=== PATIENT | male | born 1935 | race Caucasian/White ===

== ENCOUNTER 2016-12-17 10:07 | Inpatient (IN) | payer MEDICARE ==
[2016-12-17] VITALS (14 sets, daily range): BP systolic 86–116; BP diastolic 54–78; PULSE 78–92; RESP 14–27; TEMP 97.7–102.7; O2SAT 92–99
[~2016-12-17] VITALS: Ht 162.6 cm; Wt 74.7 kg
[2016-12-17] MEDS ORDERED: SODIUM CHLOR 0.9% 1000 ML INJ 1,000 ML IV SCH (10:10)
[2016-12-17] MEDS ORDERED: ONDANSETRON HCL 4 MG/2 ML VIAL IV ONE (10:15)
[2016-12-17] MEDS ORDERED: SODIUM CHLORIDE 0.9% FLUSH 10 ML FLUSH IVF PRN (10:15)
[2016-12-17] MEDS ORDERED: ACETAMINOPHEN 650 MG SUPP RECTAL ONE (10:30)
--- NOTE | 2016-12-17 10:56 | RADRPT ---
EXAM DATE/TIME: 12/17/2016 10:34 [facility] COMPARISON: No previous studies available for comparison. INDICATIONS : Fever MEDICAL HISTORY : None. SURGICAL HISTORY : None. ENCOUNTER: Initial ACUITY: 1 day PAIN SCORE: Non-responsive. LOCATION: Bilateral chest FINDINGS: Portable AP view of the chest demonstrates cardiac silhouette size at the upper limits for normal. Sara ngs are underinflated. No effusion, consolidation, or pneumothorax is identified. Bones and soft tiss ues demonstrate no acute finding. There are degenerative changes of the thoracic spine. CONCLUSION: Underinflated examination without an acute finding identified. Cardiac silhouette size is at the uppe r limits for normal. Bunny Dangelo MD on December 17, 2016 at 10:53 Board Certified Radiologist. This report was verified electronically.
[2016-12-17 11:02] LABS: AUTOMATED NEUTROPHIL # 12.2 TH/MM3 (1.8-7.7); BASOPHIL % 0.1 % (0.0-2.0); HEMATOCRIT 35.9 % (39.0-51.0); HEMO FLAGS DIFF FINAL; LYMPH % 22.3 % (9.0-44.0); LYMPHOCYTE # 3.7 TH/MM3 (1.0-4.8); MEAN CORPUSCULAR HEMOGLOBIN 25.6 PG (27.0-34.0); MEAN CORPUSCULAR HGB CONC 32.4 % (32.0-36.0); MONO % 4.5 % (0.0-8.0); NEUT % 73.1 % (16.0-70.0); PLATELET COUNT 237 TH/MM3 (150-450); RED BLOOD COUNT 4.55 MIL/MM3 (4.50-5.90); RED CELL DISTRIBUTION WIDTH 15.7 % (11.6-17.2); WHITE BLOOD COUNT 16.7 TH/MM3 (4.0-11.0)
[2016-12-17 11:09] LABS: APTT (PATIENT) 21.5 SEC (24.3-30.1); INTERNATIONAL NORMALIZED RATIO 1.1 RATIO; PROTHROMBIN TIME - PATIENT 12.2 SEC (9.8-11.6)
--- NOTE | 2016-12-17 11:09 | PD ---
HPI Chief Complaint: Altered Mental Status Time Seen by Provider: 10:10 Travel History International Travel<30 days: No Contact w/Intl Traveler<30days: No Traveled to known affect area: No History of Present Illness HPI 81-year-old male presents by ambulance with fever and found down on the ground. The has dementia and it was unknown how long he had been down on the ground. He was covered in urine and feces. Patient also speaks only a small amount of Qatari and mainly speaks Czech. History is significantly limited [facility] Past Medical History Medical History: Unable to Obtain Past Surgical History Surgical History: Unable to Obtain Social History Tobacco Use: No (unable to obtain) Allergies-Medications (Allergen,Severity, Reaction): Coded Allergies: UNOBTAINABLE (Unverified , 12/17/16) Reported Meds & Prescriptions Reported Meds & Active Scripts Active Reported Milk of Magnesia Liq (Magnesium Hydroxide) 400 Mg/5 Ml Susp 45 Ml PO HS Hydrochlorothiazide 25 Mg Tab 25 Mg PO DAILY Review of Systems Except as stated in HPI: all other systems reviewed are Neg Physical Exam Exam Limitations: Poor Historian Narrative GENERAL: Covered in feces SKIN: Warm and dry. HEAD: Normocephalic EYES: No injection or drainage. Pupils equal ENT: No nasal drainage noted. NECK: Supple, trachea midline. CARDIOVASCULAR: Regular rate and rhythm RESPIRATORY: No increased effort. No accessory muscle use. GASTROINTESTINAL: Abdomen soft, non-tender, nondistended. NEUROLOGICAL: Awake and alert to name. Moves extremities. Normal speech. Data Data Last Documented VS Vital Signs Date Time Temp Pulse Resp B/P Pulse Ox O2 Delivery O2 Flow Rate FiO2 12/17/16 12:41 100.4 12/17/16 12:38 85 16 108/58 99 Room Air Orders Electrocardiogram (12/17/16 10:10) Complete Blood Count With Diff (12/17/16 10:10) Comprehensive Metabolic Panel (12/17/16 10:10) Prothrombin Time / Inr (Pt) (12/17/16 10:10) Act Partial Throm Time (Ptt) (12/17/16 10:10) Lactic Acid Sepsis Protocol (12/17/16 10:10) Magnesium (Mg) (12/17/16 10:10) Phosphorus (Po4) (12/17/16 10:10) Lipase (12/17/16 10:10) Ckmb (Isoenzyme) Profile (12/17/16 10:10) Troponin I (12/17/16 10:10) Urinalysis - C+S If Indicated (12/17/16 10:10) Blood Culture (12/17/16 10:10) Chest, Single Ap (12/17/16 10:10) Ecg Monitoring (12/17/16 10:10) Iv Access Insert/Monitor (12/17/16 10:10) Oximetry (12/17/16 10:10) Urinary Catheter Insert/Apply (12/17/16 10:10) Ondansetron Inj (Zofran Inj) (12/17/16 10:15) Ct Brain W/O Iv Contrast(Rout) (12/17/16 10:10) Ammonia (12/17/16 10:10) Sodium Chloride 0.9% Flush (Ns Flush) (12/17/16 10:15) Sodium Chlor 0.9% 1000 Ml Inj (Ns 1000 M (12/17/16 10:10) Drug Screen, Random Urine (12/17/16 10:10) Alcohol (Ethanol) (12/17/16 10:10) Ct Cerv Spine W/O Contrast (12/17/16 ) Ct Abd/Pel W/O Iv Contrast (12/17/16 ) Acetaminophen Supp (Tylenol Supp) (12/17/16 10:30) Vancomycin Inj (Vancomycin Inj) (12/17/16 11:13) Piperacil-Tazo 4.5 Gm Premix (Zosyn 4.5 (12/17/16 11:13) Sodium Chlor 0.9% 1000 Ml Inj (Ns 1000 M (12/17/16 12:45) Admit Order (Ed Use Only) (12/17/16 12:42) Labs Laboratory Tests Test 12/17/16 10:25 White Blood Count 16.7 TH/MM3 Red Blood Count 4.55 MIL/MM3 Hemoglobin 11.6 GM/DL Hematocrit 35.9 % Mean Corpuscular Volume 79.0 FL Mean Corpuscular Hemoglobin 25.6 PG Mean Corpuscular Hemoglobin 32.4 % Concent Red Cell Distribution Width 15.7 % Platelet Count 237 TH/MM3 Mean Platelet Volume 8.6 FL Neutrophils (%) (Auto) 73.1 % Lymphocytes (%) (Auto) 22.3 % Monocytes (%) (Auto) 4.5 % Eosinophils (%) (Auto) 0.0 % Basophils (%) (Auto) 0.1 % Neutrophils # (Auto) 12.2 TH/MM3 Lymphocytes # (Auto) 3.7 TH/MM3 Monocytes # (Auto) 0.7 TH/MM3 Eosinophils # (Auto) 0.0 TH/MM3 Basophils # (Auto) 0.0 TH/MM3 CBC Comment DIFF FINAL Differential Comment Prothrombin Time 12.2 SEC Prothromb Time International 1.1 RATIO Ratio Activated Partial 21.5 SEC Thromboplast Time Urine Color YELLOW Urine Turbidity CLEAR Urine pH 8.0 Urine Specific [place] 1.016 Urine Protein TRACE mg/dL Urine Glucose (UA) 300 mg/dL Urine Ketones NEG mg/dL Urine Occult Blood NEG Urine Nitrite NEG Urine Bilirubin NEG Urine Urobilinogen LESS THAN 2.0 MG/DL Urine Leukocyte Esterase NEG Urine RBC 2 /hpf Urine WBC LESS THAN 1 /hpf Microscopic Urinalysis Comment CATH-CULT NOT IND Sodium Level 136 MEQ/L Potassium Level 3.4 MEQ/L Chloride Level 100 MEQ/L Carbon Dioxide Level 27.9 MEQ/L Anion Gap 8 MEQ/L Blood Urea Nitrogen 24 MG/DL Creatinine 1.21 MG/DL Estimat Glomerular Filtration 58 ML/MIN Rate Random Glucose 217 MG/DL Lactic Acid Level 3.3 mmol/L Calcium Level 7.9 MG/DL Phosphorus Level 1.6 MG/DL Magnesium Level 2.1 MG/DL Total Bilirubin 2.4 MG/DL Aspartate Amino Transf 697 U/L (AST/SGOT) Alanine Aminotransferase 501 U/L (ALT/SGPT) Alkaline Phosphatase 155 U/L Ammonia 22 MCMOL/L Total Creatine Kinase 76 U/L Troponin I 0.06 NG/ML Total Protein 6.7 GM/DL Albumin 3.2 GM/DL Lipase 158 U/L Urine Opiates Screen NEG Urine Barbiturates Screen NEG Urine Amphetamines Screen NEG Urine Benzodiazepines Screen NEG Urine Cocaine Screen NEG Urine Cannabinoids Screen NEG Ethyl Alcohol Level LESS THAN 3 MG/DL MDM Medical Decision Making Medical Screen Exam Complete: Yes Emergency Medical Condition: Yes Medical Record Reviewed: Yes (no prior records) Interpretation(s) EKG is sinus rhythm at 90, right bundle branch block, ST elevation aVR, V1, 3 without prior for comparison CBC & BMP Diagram 12/17/16 10:25 Last [address] 12/17/16 1010 Signed Impressions: Service Date/Time: December 11:04 - CONCLUSION: Normal examination. Eder Vitale Jr., MD Chest X-Ray 12/17/16 1010 Signed Impressions: Service Date/Time: December 10:34 - CONCLUSION: Underinflated examination without an acute finding identified. Cardiac silhouette size is at the upper limits for normal. Bunny Dangelo MD Abdomen/Pelvis CT 12/17/16 0000 Signed Impressions: Service Date/Time: December 11:14 - CONCLUSION: 1. No definite acute finding is identified. However, the central liver appears somewhat heterogeneous and it is not clear if this is related to a liver mass, abnormal gallbladder, or artifact. When the patient's condition permits suggest contrast enhanced CT or MRI of the liver. 2. There is a single mildly enlarged aortocaval lymph node. No other lymphadenopathy is present. 3. Nonacute findings include moderate atherosclerotic disease and prostatomegaly. Bunny Dangelo MD Differential Diagnosis Sepsis, UTI, intracranial, pneumonia, electrolyte, renal failure, fracture... Narrative Course Will check blood work and trauma imaging and dose with IV fluids and Tylenol and reevaluate Patient has severe sepsis. Given broad-spectrum antibiotics of vancomycin and Zosyn. CAT scan shows possible gallbladder source requesting better imaging. We will discuss this with the ICU team. Patient will be given additional IV fluid hydration. He'll be admitted to the ICU for further care. was at bedside and cannot provide me with additional history. Critical Care Narrative Aggregate critical care time was 31 minutes. Time to perform other separately billable procedures was not included in the critical care time. My time did not include minutes spent treating any other patients simultaneously or on activities that did not directly contribute to the patient's treatment. The services I provided to this patient were to treat and/or prevent clinically significant deterioration that could result in: Septic shock, renal failure I provided critical care services requiring my management, as noted below: Chart data review, documentation time, medication orders and management, vital sign assessments/reviewing monitor data, ordering and reviewing lab tests, ordering and interpreting/reviewing x-rays and diagnostic studies, care of the patient and discussion of the patient with the admitting physicians. Sepsis Criteria SIRS Criteria (2 or more): Temp > 100.9 or < 96.8, WBC > 63337, < 4000 or > 10 % bands Sepsis Criteria (SIRS+source): Infect source susp/known Severe Sepsis (+one): Lactate >2 Criteria Outcome: Meets severe sepsis criteria Physician Communication Physician Communication dr florez agrees to admit Diagnosis Primary Impression: Severe sepsis Additional Impressions: ST segment changes on electrocardiogram Elevated troponin Admitting Information Admitting Physician Requests: Admit Do Emanuel MD December 17, 2016 11:09
[2016-12-17] MEDS ORDERED: VANCOMYCIN INJ 1,000 MG in SODIUM CHLOR 0.9% 250 ML INJ 250 ML IV STA (11:13)
[2016-12-17] MEDS ORDERED: PIPERACIL-TAZO 4.5 GM PREMIX 100 ML IV STA (11:13)
[2016-12-17 11:17] LABS: ANION GAP 8 MEQ/L (5-15); AST (GOT) 697 U/L (15-37); BICARBONATE 27.9 MEQ/L (21.0-32.0); BLOOD UREA NITROGEN 24 MG/DL (7-18); CHLORIDE 100 MEQ/L (98-107); GLOMERULAR FILTRATION RATE 58 ML/MIN (>89); MAGNESIUM 2.1 MG/DL (1.5-2.5); POTASSIUM 3.4 MEQ/L (3.5-5.1); SODIUM (NA) 136 MEQ/L (136-145)
[2016-12-17 11:22] LABS: BLOOD, URINE NEG (NEG); COMMENT (UR) CATH-CULT NOT IND; CULTURE IF INDICATED CATH CULTURE NOT IND; GLUCOSE,URINE 300 mg/dL (NEG); KETONE, URINE NEG (NEG); NITRITE,URINE NEG (NEG); URINE COLOR YELLOW (YELLW/STRAW)
[2016-12-17 11:26] LABS: ALKALINE PHOSPHATASE 155 U/L (45-117); ALT (GPT) 501 U/L (12-78); TOTAL BILIRUBIN ADULT 2.4 MG/DL (0.2-1.0)
[2016-12-17 11:28] LABS: CREATINE KINASE 76 U/L (39-308)
--- NOTE | 2016-12-17 11:30 | RADRPT ---
EXAM DATE/TIME: 12/17/2016 11:04 [facility] COMPARISON: No previous studies available for comparison. INDICATIONS : Altered mental status, found on floor RADIATION DOSE: 60.69 CTDIvol (mGy) MEDICAL HISTORY : Non-responsive. SURGICAL HISTORY : Non-responsive. ENCOUNTER: Initial ACUITY: 1 day PAIN SCALE: Non-responsive LOCATION: cranial unknown TECHNIQUE: Multiple contiguous axial images were obtained of the head. Using automated exposure control and adj ustment of the mA and/or kV according to patient size, radiation dose was kept as low as reasonably a chievable to obtain optimal diagnostic quality images. FINDINGS: CEREBRUM: The ventricles are normal for age. No evidence of midline shift, mass lesion, hemorrhage or acute in farction. No extra-axial fluid collections are seen. POSTERIOR FOSSA: The cerebellum and brainstem are intact. The 4th ventricle is midline. The cerebellopontine angle i s unremarkable. EXTRACRANIAL: The visualized portion of the orbits is intact. SKULL: The calvaria is intact. No evidence of skull fracture. CONCLUSION: Normal examination. Eder Vitale Jr., MD on December 17, 2016 at 11:26 Board Certified Radiologist. This report was verified electronically.
[2016-12-17 11:37] LABS: AMPHETAMINE, URINE NEG (NEG); BARBITURATES, URINE NEG (NEG); COCAINE, URINE NEG (NEG)
--- NOTE | 2016-12-17 11:40 | RADRPT ---
EXAM DATE/TIME: 12/17/2016 11:14 [facility] COMPARISON: No previous studies available for comparison. INDICATIONS : Fever, found on floor ORAL CONTRAST: No oral contrast ingested. RADIATION DOSE: 7.63 CTDIvol (mGy) MEDICAL HISTORY : Non-responsive. SURGICAL HISTORY : Non-responsive. ENCOUNTER: Initial ACUITY: 1 day PAIN SCALE: Non-responsive LOCATION: Bilateral lower quadrant abdomen TECHNIQUE: Volumetric scanning of the abdomen and pelvis was performed. Using automated exposure control and ad justment of the mA and/or kV according to patient size, radiation dose was kept as low as reasonably achievable to obtain optimal diagnostic quality images. FINDINGS: There is respiratory motion artifact. LOWER LUNGS: No acute abnormality. LIVER: Liver is not well evaluated since no contrast was administered and due to the motion artifact and ove rlying lines. The left lobe is small. There is a punctate calcification in the central liver in the r egion of the gallbladder fossa. This area appears mildly decreased in attenuation. Right lobe otherwi se demonstrates no acute finding. Liver measures 18.5 cm in length. There is no dilation of the bili radha tree. SPLEEN: Normal size without lesion. PANCREAS: Within normal limits. KIDNEYS: Normal in size and shape. There is no mass, stone, or hydronephrosis. ADRENAL GLANDS: Within normal limits. VASCULAR: There is no aortic aneurysm. There is moderate atherosclerotic disease. BOWEL/MESENTERY: The stomach, small bowel, and colon demonstrate no acute abnormality. There is no free intraperitone al air or fluid. ABDOMINAL WALL: Within normal limits. RETROPERITONEUM: There is an enlarged aortocaval lymph node posterior to the duodenum measuring 12 mm in short axis di ameter. No other lymphadenopathy is visualized. BLADDER: No wall thickening or mass. Sanchez catheter is present within the urinary bladder. REPRODUCTIVE: Prostate gland is enlarged. INGUINAL: There is no lymphadenopathy or hernia. MUSCULOSKELETAL: There are degenerative changes of the lumbar spine with dextroscoliosis. Enostosis is present in the left iliac bone. CONCLUSION: 1. No definite acute finding is identified. However, the central liver appears somewhat heterogeneous and it is not clear if this is related to a liver mass, abnormal gallbladder, or artifact. When the patient's condition permits suggest contrast enhanced CT or MRI of the liver. 2. There is a single mildly enlarged aortocaval lymph node. No other lymphadenopathy is present. 3. Nonacute findings include moderate atherosclerotic disease and prostatomegaly. Bunny Dangelo MD on December 17, 2016 at 11:31 Board Certified Radiologist. This report was verified electronically.
[2016-12-17] MEDS ORDERED: SODIUM CHLOR 0.9% 1000 ML INJ 1,000 ML IV ONE ×3 (12:45→23:00)
[2016-12-17 12:49] LABS: LACTIC ACID GHOST NOT REPORTABLE
--- NOTE | 2016-12-17 13:28 | RADRPT ---
EXAM DATE/TIME: 12/17/2016 11:04 [facility] COMPARISON: No previous studies available for comparison. INDICATIONS : Found on floor, unresponsive. RADIATION DOSE: 23.49 CTDIvol (mGy) MEDICAL HISTORY : Non-responsive. SURGICAL HISTORY : Non-responsive. ENCOUNTER: Initial ACUITY: 1 day PAIN SCALE: Non-responsive LOCATION: neck TECHNIQUE: Volumetric scanning of the cervical spine was performed. Multiplanar reconstructions in the sagittal, coronal and oblique axial planes were performed. Using automated exposure control and adjustment o f the mA and/or kV according to patient size, radiation dose was kept as low as reasonably achievable to obtain optimal diagnostic quality images. FINDINGS: VERTEBRAE: Normal vertebral body height. ALIGNMENT: No evidence of subluxation. C2-C3: A left paracentral disc bulge. No abutment of the cord or central canal stenosis. Neural foramina are patent. C3-C4: No bulge or protrusion. Central canal is patent. Bony uncovertebral hypertrophy generates mild right neural foraminal narrowing. The left remains patent. C4-C5: A broad-based disc osteophyte complex without central canal stenosis. Lateral recess narrowing noted bilaterally. Bony uncovertebral hypertrophy without significant neural foraminal narrowing. Large ant erior osteophyte. C5-C6: A broad-based disc osteophyte complex. Without narrowing of the central canal. Narrowing of the later al recesses. Bony uncovertebral hypertrophy without significant narrowing of the neural foramina. Ant erior bridging osteophyte. C6-C7: A broad-based disc osteophyte complex. Without narrowing of the central canal. Narrowing of the later al recesses. Bony uncovertebral hypertrophy without significant narrowing of the neural foramina. Ant erior bridging osteophyte. C7-T1: The bony spinal canal is normal in size. No evidence of disc bulge or herniation. The neural forami na are bilaterally patent. CONCLUSION: 1. No fracture or dislocation. 2. Degenerative changes as detailed above. Eder Vitale Jr., MD on December 17, 2016 at 13:21 Board Certified Radiologist. This report was verified electronically.
[2016-12-17] MEDS ORDERED: MILKSUS PO (14:10)
[2016-12-17] MEDS ORDERED: HYDR25TA5 PO (14:10)
[2016-12-17] MEDS ORDERED: MAGNESIUM SULFATE INJ 2 GM in SODIUM CHLORIDE 0.9% INJ 96 ML IV PRN (14:15)
[2016-12-17] MEDS ORDERED: POTASSIUM CHLORIDE 25 MEQ EFFERVESCENT TAB PO PRN (14:15)
[2016-12-17] MEDS ORDERED: CHLORHEXIDINE GLUCONATE 2 % 1 PACK (2 CLOTHS) TOP PRN (14:15)
[2016-12-17] MEDS ORDERED: MAGNESIUM HYDROXIDE SUSP 30 ML CUP PO PRN (14:15)
[2016-12-17] MEDS ORDERED: MAGNESIUM SULFATE INJ 4 GM in SODIUM CHLORIDE 0.9% INJ 92 ML IV PRN (14:15)
[2016-12-17] MEDS ORDERED: ACETAMINOPHEN 325 MG TAB PO PRN (14:15)
[2016-12-17] MEDS ORDERED: RESP: ALBUTEROL 2.5 MG/IPRATROPIUM 0.5 MG NEB (PRN) INH (14:15)
[2016-12-17] MEDS ORDERED: POTASSIUM PHOSPHATE MONOBASIC 500 MG TAB PO/TUBE PRN (14:15)
[2016-12-17] MEDS ORDERED: ONDANSETRON HCL 4 MG/2 ML VIAL IV PRN (14:15)
[2016-12-17] MEDS ORDERED: POTASSIUM CHLOR 20 MEQ PREMIX 100 ML IV PRN ×2 (14:15)
[2016-12-17] MEDS ORDERED: MISCELLANEOUS NURSING INFORMATION XX SCH (14:15)
[2016-12-17] MEDS ORDERED: Vancomycin Consult Pharmacy 1 EA OTHER SCH (14:15)
[2016-12-17] MEDS ORDERED: SODIUM PHOSPHATE INJ 30 MMOL in SODIUM CHLOR 0.9% 250 ML INJ 240 ML IV PRN (14:15)
[2016-12-17] MEDS ORDERED: SENNOSIDES 8.6 MG TAB PO PRN (14:15)
[2016-12-17] MEDS ORDERED: SODIUM CHLORIDE 0.9% FLUSH 10 ML FLUSH IV FLUSH PRN (14:15)
[2016-12-17] MEDS ORDERED: MAGNESIUM OXIDE 400 MG TAB PO PRN (14:15)
[2016-12-17] MEDS ORDERED: POTASSIUM CHLOR 40 MEQ PREMIX 100 ML IV PRN ×2 (14:15)
[2016-12-17] MEDS ORDERED: POTASSIUM PHOSPHATE MONOBASIC 500 MG TAB PO PRN (14:15)
[2016-12-17] MEDS ORDERED: CEFEPIME INJ 2,000 MG in SODIUM CHLORIDE 0.9% INJ 100 ML IV SCH (15:00)
[2016-12-17] MEDS: SODIUM CHLOR 0.9% 1000 ML INJ 1,000 ML IV SCH ×2 (15:24→17:46)
[2016-12-17] MEDS: HEPARIN SODIUM - SQ 10,000 UNITS/ML VIAL SQ SCH (16:37)
--- NOTE | 2016-12-17 17:18 | EC ---
Study Study Date:12/17/2016 STUDY CONCLUSIONS SUMMARY - Left ventricle: The cavity size was normal. Wall thickness was normal. Systolic function was normal. The estimated ejection fraction was in the range of 55% to 60%. Wall motion was normal; there were no regional wall motion abnormalities. - Aortic valve: Transvalvular velocity was increased less than expected. There was mild stenosis. Valve area: 1.22cm^2(VTI). Valve area: 0.99cm^2 (Vmax). - Mitral valve: Mild regurgitation. - Tricuspid valve: Mild regurgitation. If LV function is below 40, please consider prescribing an ACEI or ARB or document rationale for non-use. PROCEDURE DATA STUDY STATUS: Elective. Procedure: Transthoracic echocardiography. Image quality was good. Scanning was performed from the parasternal, apical, and subcostal acoustic windows. Study completion: The patient tolerated the procedure well. Transthoracic echocardiography. M-mode, complete 2D, complete spectral Doppler, and color Doppler. Patient status: Inpatient. CARDIAC ANATOMY LEFT VENTRICLE: The cavity size was normal. Wall thickness was normal. Systolic function was normal. The estimated ejection fraction was in the range of 55% to 60%. Wall motion was normal; there were no regional wall motion abnormalities. AORTIC VALVE: Probably trileaflet; normal thickness leaflets. Doppler: Transvalvular velocity was increased less than expected. There was mild stenosis. No regurgitation. Valve area: 1.22cm^2(VTI). Valve area: 0.99cm^2 (Vmax). Mean gradient: 7mm Hg (S). Peak gradient: 14mm Hg (S). AORTA: Aortic root: The aortic root was normal in size. MITRAL VALVE: Structurally normal valve. Doppler: Transvalvular velocity was within the normal range. There was no evidence for stenosis. Mild regurgitation. LEFT ATRIUM: The atrium was normal in size. RIGHT VENTRICLE: The cavity size was normal. Wall thickness was normal. PULMONIC VALVE: Doppler: Transvalvular velocity was within the normal range. There was no evidence for stenosis. No regurgitation. TRICUSPID VALVE: Structurally normal valve. Doppler: Transvalvular velocity was within the normal range. Mild regurgitation. PULMONARY ARTERY: The main pulmonary artery was normal-sized. Systolic pressure was within the normal range. RIGHT ATRIUM: The atrium was normal in size. PERICARDIUM: There was no pericardial effusion. SYSTEMIC VEINS: Inferior vena cava: The vessel was normal in size. BASIC MEASUREMENTS ADULT NORMAL Left ventricle LV internal dimension, ED, chordal level, 52 mm 43-52 PLAX LV internal dimension, ES, chordal level, *43 mm 23-38 PLAX Fractional shortening, chordal level, PLAX *17 % >29 LV posterior wall thickness, ED 10.9 mm IVS/LVPW ratio, ED 1.14 <1.3 Ventricular septum Septal thickness, ED 12.4 mm Aortic valve Leaflet separation *13 mm 15-26 Right ventricle RV internal dimension, ED, PLAX 29.7 mm 19-38 BASIC MEASUREMENTS ADULT NORMAL Aortic valve Leaflet separation *13 mm 15-26 Aorta Root diameter, ED 31 mm 20-37 Left atrium Anterior-posterior dimension, ES 38 mm 19-40 LA/aortic root ratio 1.23 DOPPLER MEASUREMENTS ADULT NORMAL Aortic valve Peak velocity, S 187 cm/s Mean velocity, S 121 cm/s VTI, S 37.5 cm Mean gradient, S 7 mm Hg Peak gradient, S 14 mm Hg Valve area, VTI 1.22 cm^2 Valve area, Vmax 0.99 cm^2 LEGEND: Mean values are shown as u=mean value. Asterisk (*) knox values outside specified normal range. Prepared and signed by Rubens Padilla [id number]
--- NOTE | 2016-12-17 18:27 | HHI.HP ---
HPI Service Critical Care Medicine Primary Care Physician No Primary Care Physician Admission Diagnosis sepsis Diagnosis: Travel History International Travel<30 Days: No Contact w/Intl Traveler <30 Da: No Traveled to Known Affected Are: No History of Present Illness 81-year-old male that presented to the ED and found down for an unknown period of time. The has dementia and it was unknown how long he had been down on the ground. He was covered in urine and feces. Upon presentation to the ED , the patient also spoke only a small amount of Guamanian and mainly speaks Czech. Unable to obtain a history initially the ED . Upon entering the ED, the patient was alert and oriented 3, patient reports he was in the bed and he fell out of the bed and did not know how long she had been down on the floor. The patient's blood pressure upon my evaluation 112/76, to receiving several liters of crystalloid, and empiric antibiotics. Critical care medicine is consulted for further management. History PFSH Past Medical History Medical History: Unable to Obtain Past Surgical History Surgical History: Unable to Obtain Social History Tobacco Use: No (unable to obtain) Allergies-Medications Allergies-Medications (Allergen,Severity, Reaction): Coded Allergies: UNOBTAINABLE (Unverified , 12/17/16) Reported Meds & Prescriptions Reported Meds & Active Scripts Active Reported Milk of Magnesia Liq (Magnesium Hydroxide) 400 Mg/5 Ml Susp 45 Ml PO HS Hydrochlorothiazide 25 Mg Tab 25 Mg PO DAILY ROS Review of Systems Except as stated in HPI: all other systems reviewed are Neg Physical Exam Vital Signs Vital Signs Date Time Temp Pulse Resp B/P Pulse Ox O2 Delivery O2 Flow Rate FiO2 12/17/16 18:09 78 12/17/16 17:47 99.6 78 20 116/78 98 12/17/16 16:07 80 16 110/60 99 12/17/16 15:00 78 12/17/16 13:52 80 16 98/58 96 Room Air 12/17/16 12:41 100.4 12/17/16 12:38 85 16 108/58 99 Room Air 12/17/16 11:45 98.8 87 14 110/60 98 Room Air 12/17/16 10:24 102.7 92 16 107/63 95 Room Air 12/17/16 10:24 89 16 96 Room Air 12/17/16 10:13 102.7 90 16 107/63 Physical Exam GENERAL: Elderly appearing gentleman, in no apparent distress, appropriately conversant SKIN: Warm and dry. HEAD: Atraumatic. Normocephalic. EYES: Pupils equal and round, 3 mm breath. No scleral icterus. No injection or drainage. ENT: No nasal bleeding or discharge. Mucous membranes pink and moist. NECK: Trachea midline. No JVD. CARDIOVASCULAR: Normal rate, regular rhythm. RESPIRATORY: No accessory muscle use. Clear to auscultation. Breath sounds equal bilaterally. GASTROINTESTINAL: Abdomen soft, non-tender, nondistended. No guarding. MUSCULOSKELETAL: Extremities without clubbing, cyanosis, or edema. No obvious deformities. NEUROLOGICAL: Awake and alert. RASS 0. No gross focal/sensory deficits. Follows commands in all 4 extremities. Laboratory Laboratory Tests Test 12/17/16 12/17/16 10:25 13:20 White Blood Count 16.7 Red Blood Count 4.55 Hemoglobin 11.6 Hematocrit 35.9 Mean Corpuscular Volume 79.0 Mean Corpuscular Hemoglobin 25.6 Mean Corpuscular Hemoglobin 32.4 Concent Red Cell Distribution Width 15.7 Platelet Count 237 Mean Platelet Volume 8.6 Neutrophils (%) (Auto) 73.1 Lymphocytes (%) (Auto) 22.3 Monocytes (%) (Auto) 4.5 Eosinophils (%) (Auto) 0.0 Basophils (%) (Auto) 0.1 Neutrophils # (Auto) 12.2 Lymphocytes # (Auto) 3.7 Monocytes # (Auto) 0.7 Eosinophils # (Auto) 0.0 Basophils # (Auto) 0.0 CBC Comment DIFF FINAL Differential Comment Prothrombin Time 12.2 Prothromb Time International 1.1 Ratio Activated Partial 21.5 Thromboplast Time Urine Color YELLOW Urine Turbidity CLEAR Urine pH 8.0 Urine Specific Wendell 1.016 Urine Protein TRACE Urine Glucose (UA) 300 Urine Ketones NEG Urine Occult Blood NEG Urine Nitrite NEG Urine Bilirubin NEG Urine Urobilinogen LESS THAN 2.0 Urine Leukocyte Esterase NEG Urine RBC 2 Urine WBC LESS THAN 1 Microscopic Urinalysis Comment CATH-CULT NOT IND Sodium Level 136 Potassium Level 3.4 Chloride Level 100 Carbon Dioxide Level 27.9 Anion Gap 8 Blood Urea Nitrogen 24 Creatinine 1.21 Estimat Glomerular Filtration 58 Rate Random Glucose 217 Lactic Acid Level 3.3 2.4 Calcium Level 7.9 Phosphorus Level 1.6 Magnesium Level 2.1 Total Bilirubin 2.4 Aspartate Amino Transf 697 (AST/SGOT) Alanine Aminotransferase 501 (ALT/SGPT) Alkaline Phosphatase 155 Ammonia 22 Total Creatine Kinase 76 Troponin I 0.06 B-Type Natriuretic Peptide 169 Total Protein 6.7 Albumin 3.2 Lipase 158 Urine Opiates Screen NEG Urine Barbiturates Screen NEG Urine Amphetamines Screen NEG Urine Benzodiazepines Screen NEG Urine Cocaine Screen NEG Urine Cannabinoids Screen NEG Ethyl Alcohol Level LESS THAN 3 Date/Time Procedure Status Source Growth 12/17/16 10:25 Legionella Antigen - Final Complete Urine Random Urine PRESUMPTIVE NEGATIVE FOR LEGIONELLA P... 12/17/16 10:25 Aerobic Blood Culture Received Blood Peripheral Pending 12/17/16 10:25 Anaerobic Blood Culture Received Blood Peripheral Pending Result Diagram: 12/17/16 1025 12/17/16 1025 Imaging Last [address] 12/17/16 1010 Signed Impressions: Service Date/Time: December 11:04 - CONCLUSION: Normal examination. Eder Vitale Jr., MD Chest X-Ray 12/17/16 1010 Signed Impressions: Service Date/Time: December 10:34 - CONCLUSION: Underinflated examination without an acute finding identified. Cardiac silhouette size is at the upper limits for normal. Bunny Dangelo MD Cervical Spine CT 12/17/16 0000 Signed Impressions: Service Date/Time: December 11:04 - CONCLUSION: 1. No fracture or dislocation. 2. Degenerative changes as detailed above. Eder Vitale Jr., MD Abdomen/Pelvis CT 12/17/16 0000 Signed Impressions: Service Date/Time: December 11:14 - CONCLUSION: 1. No definite acute finding is identified. However, the central liver appears somewhat heterogeneous and it is not clear if this is related to a liver mass, abnormal gallbladder, or artifact. When the patient's condition permits suggest contrast enhanced CT or MRI of the liver. 2. There is a single mildly enlarged aortocaval lymph node. No other lymphadenopathy is present. 3. Nonacute findings include moderate atherosclerotic disease and prostatomegaly. Bunny Dagnelo MD Septic Shock Reassessment Heart: Regular rate and rhythm Lungs: Clear Peripheral Pulses: Bounding Right Radial Bounding Left Radial Bounding Right Dorsalis Pedis Bounding Left Dorsalis Pedis Assessment and Plan Assessment and Plan Plan by systems: Neurologic: Metabolic encephalopathy secondary to sepsis Avoid sedatives medications Checks per ICU protocol Maintain sleep hygiene 12/17 CT brain- no abnormality Respiratory: No acute issues 10 O2 sat greater than 92%. O2 14 L/m nasal cannula if needed Maintain head of bed greater than 30 Cardiovascular: 12/17 diffuse EKG changes 12/17 echo-Ejection fraction 5560 percent. No regional wall motion abnormalities BNP 156, continue to monitor Serial troponins follow-up Renal: Renal insufficiency No Sanchez -- Strict I/Os FEN/GI: In the ED the patient received 2 L of normal saline Normal saline at 100 cc/hour Initiate heart healthy diet Monitor BMP CT abdomen and pelvis-recommendation for MRI CT repeat with contrast, abnormal liver contour Bowel regimen Follow-up CMP T Bili, alk phosphatase elevated obtain gallbladder ultrasound Heme/ID: Sepsis Patient received Vancomycin and Zosyn in the ED Monitor serial lactate Monitor and follow-up blood cultures Empiric antibiotics initiated vancomycin and cefepime Tylenol for temperature greater than 101 5/for Legionellanegative Endocrine: Glucose monitoring per ICU protocol -- SSI Prophylaxis: GI Prophylaxis Protonix DVT Prophylaxis -- SCDs Heparin SQ Lines: Peripheral IVs 2. Central line if indicated. Dispo: Level [address] [facility] transfer to medical floor Code Status Full Discussed Condition With TUBE WORKER at bedside Kirsten Jaimes MD December 17, 2016 18:27
[2016-12-17] MEDS: SODIUM CHLORIDE 0.9% FLUSH 10 ML FLUSH IV FLUSH SCH (19:54)
[2016-12-17] MEDS: CEFEPIME INJ 2,000 MG in SODIUM CHLORIDE 0.9% INJ 100 ML IV SCH (19:54)
[2016-12-17] MEDS: DOCUSATE SODIUM 100 MG CAP PO SCH (19:54)
[2016-12-18] MEDS: HEPARIN SODIUM - SQ 10,000 UNITS/ML VIAL SQ SCH ×2 (03:12→13:24)
[2016-12-18] MEDS: CEFEPIME INJ 2,000 MG in SODIUM CHLORIDE 0.9% INJ 100 ML IV SCH ×2 (03:13→13:23)
[2016-12-18] MEDS: CHLORHEXIDINE GLUCONATE 2 % 1 PACK (2 CLOTHS) TOP SCH (03:13)
[2016-12-18 04:28] VITALS: BP 90/53; PULSE 80; RESP 16; TEMP 97.8; O2SAT 95
[2016-12-18] MEDS ORDERED: VANCOMYCIN INJ 1,250 MG in SODIUM CHLOR 0.9% 250 ML INJ 250 ML IV SCH (06:00)
[2016-12-18 08:00] VITALS: BP 142/77; PULSE 69; RESP 20; TEMP 97.6; O2SAT 98
[2016-12-18] MEDS: PANTOPRAZOLE SODIUM 40 MG VIAL IV SCH (08:59)
[2016-12-18] MEDS: DOCUSATE SODIUM 100 MG CAP PO SCH ×2 (08:59→20:28)
[2016-12-18] MEDS: SODIUM CHLOR 0.9% 1000 ML INJ 1,000 ML IV SCH ×2 (09:00→13:23)
[2016-12-18] MEDS: SODIUM CHLORIDE 0.9% FLUSH 10 ML FLUSH IV FLUSH SCH ×2 (09:00→20:28)
[2016-12-18 09:33] LABS: AUTOMATED NEUTROPHIL # 8.5 TH/MM3 (1.8-7.7); BASOPHIL % 0.3 % (0.0-2.0); EOSINOPHIL # 0.1 TH/MM3 (0-0.4); EOSINOPHIL % 0.4 % (0.0-4.0); HEMATOCRIT 31.1 % (39.0-51.0); HEMO FLAGS DIFF FINAL; LYMPH % 30.3 % (9.0-44.0); MEAN CORPUSCULAR HEMOGLOBIN 26.3 PG (27.0-34.0); MEAN CORPUSCULAR HGB CONC 33.4 % (32.0-36.0); MONO % 4.9 % (0.0-8.0); NEUT % 64.1 % (16.0-70.0); PLATELET COUNT 238 TH/MM3 (150-450); RED BLOOD COUNT 3.94 MIL/MM3 (4.50-5.90); RED CELL DISTRIBUTION WIDTH 15.5 % (11.6-17.2); WHITE BLOOD COUNT 13.3 TH/MM3 (4.0-11.0)
--- NOTE | 2016-12-18 09:46 | RADRPT ---
EXAM DATE/TIME: 12/18/2016 08:40 [facility] COMPARISON: CT ABDOMEN & PELVIS W/O CONTRAST, December 17, 2016, 11:14. INDICATIONS : Evaluate common bile duct. MEDICAL HISTORY : Unable to obtain. SURGICAL HISTORY : Unable to obtain. ENCOUNTER: Initial ACUITY: 1 day PAIN SCORE: 0/10 LOCATION: Right upper quadrant MEASUREMENTS: LIVER: 14.6 cm length COMMON DUCT: 5 mm RIGHT KIDNEY: 11.4 x 5.3 x 6.9 cm FINDINGS: LIVER: The area concern within the central portion of the right lobe of the liver adjacent to a calcificatio n is heterogeneous on the ultrasound. No discrete mass is observed. No displacement of vessels. This area measures 7 x 4 cm. This correlates to the finding on the recent CT. The remaining liver is unrem arkable. Hepatopedal flow within the portal vein. COMMON DUCT: No intraluminal mass or stone visualized. GALLBLADDER: The gallbladder is not well distended. Echogenic non-shadowing material consistent with sludge. Some ringdown artifact suggesting Rokitansky Aschoff sinuses. There is gallbladder wall thickening reachin g a maximum thickness of 5 mm. No pericholecystic fluid. PANCREAS: The visualized portions are within normal limits. RIGHT KIDNEY: No evidence of hydronephrosis, stone, or mass. CONCLUSION: 1. Vague area of heterogeneity in the area of concern within the central portions of the right lobe o f the liver which correlates to the area on the prior CT. The exact etiology is uncertain. I cannot c ompletely exclude a mass. MRI is suggested to further evaluate. 2. Chronic cholecystitis. Details given above. Eder Vitale Jr., MD on December 18, 2016 at 9:32 Board Certified Radiologist. This report was verified electronically.
[2016-12-18 10:12] LABS: BICARBONATE 24.6 MEQ/L (21.0-32.0); CALCIUM-PROTEIN CORRECTED 8.1 MG/DL (8.5-10.1); MAGNESIUM 2.3 MG/DL (1.5-2.5); POTASSIUM 3.5 MEQ/L (3.5-5.1); TOTAL BILIRUBIN ADULT 3.2 MG/DL (0.2-1.0)
[2016-12-18 11:45] VITALS: PULSE 77
--- NOTE | 2016-12-18 11:59 | HHI.PR ---
Subjective Remarks Says he feels improved today. He is asking for food. He is alert and oriented. No fevers or chills. No n/v/d/c. No sob, or chest pain. Objective Vitals Vital Signs Date Time Temp Pulse Resp B/P Pulse Ox O2 Delivery O2 Flow Rate FiO2 12/18/16 11:45 77 12/18/16 08:00 97.6 69 20 142/77 98 12/18/16 04:28 97.8 80 16 90/53 95 12/17/16 22:30 97.7 84 16 88/54 95 86/54 12/17/16 22:00 84 12/17/16 20:00 84 12/17/16 18:09 78 12/17/16 18:00 90 27 92 12/17/16 17:47 99.6 78 20 116/78 98 12/17/16 16:07 80 16 110/60 99 12/17/16 15:00 78 12/17/16 13:52 80 16 98/58 96 Room Air 12/17/16 12:41 100.4 12/17/16 12:38 85 16 108/58 99 Room Air I/O 12/17/16 12/17/16 12/17/16 12/18/16 12/18/16 12/18/16 07:00 15:00 23:00 07:00 15:00 23:00 Intake Total 545 ml 0 ml Output Total 1100 ml 550 ml Balance -555 ml -550 ml Intake Oral 100 ml 0 ml IV Total 445 ml Output Urine Total 1100 ml 550 ml Stool Total 0 ml # Bowel Movements 0 Result Diagram: 12/18/16 0848 12/18/16 0848 Imaging Last Impressions Gall Bladder Ultrasound 12/18/16 0000 Signed Impressions: Service Date/Time: Sunday, December 18, 2016 08:40 - CONCLUSION: 1. Vague area of heterogeneity in the area of concern within the central portions of the right lobe of the liver which correlates to the area on the prior CT. The exact etiology is uncertain. I cannot completely exclude a mass. MRI is suggested to further evaluate. 2. Chronic cholecystitis. Details given above. Eder Vitale Jr., MD Head CT 12/17/16 1010 Signed Impressions: Service Date/Time: December 11:04 - CONCLUSION: Normal examination. Eder Vitale Jr., MD Chest X-Ray 12/17/16 1010 Signed Impressions: Service Date/Time: December 10:34 - CONCLUSION: Underinflated examination without an acute finding identified. Cardiac silhouette size is at the upper limits for normal. Bunny Dangelo MD Cervical Spine CT 12/17/16 0000 Signed Impressions: Service Date/Time: December 11:04 - CONCLUSION: 1. No fracture or dislocation. 2. Degenerative changes as detailed above. Eder Vitale Jr., MD Abdomen/Pelvis CT 12/17/16 0000 Signed Impressions: Service Date/Time: December 11:14 - CONCLUSION: 1. No definite acute finding is identified. However, the central liver appears somewhat heterogeneous and it is not clear if this is related to a liver mass, abnormal gallbladder, or artifact. When the patient's condition permits suggest contrast enhanced CT or MRI of the liver. 2. There is a single mildly enlarged aortocaval lymph node. No other lymphadenopathy is present. 3. Nonacute findings include moderate atherosclerotic disease and prostatomegaly. Bunny Dangelo MD Objective Remarks GENERAL: Elderly appearing gentleman, in no apparent distress, appropriately conversant SKIN: Warm and dry. HEAD: Atraumatic. Normocephalic. EYES: Pupils equal and round, 3 mm breath. No scleral icterus. No injection or drainage. ENT: No nasal bleeding or discharge. Mucous membranes pink and moist. NECK: Trachea midline. No JVD. CARDIOVASCULAR: Normal rate, regular rhythm. RESPIRATORY: No accessory muscle use. Clear to auscultation. Breath sounds equal bilaterally. GASTROINTESTINAL: Abdomen soft, non-tender, nondistended. No guarding. MUSCULOSKELETAL: Extremities without clubbing, cyanosis, or edema. No obvious deformities. NEUROLOGICAL: Awake and alert. RASS 0. No gross focal/sensory deficits. Follows commands in all 4 extremities. A/P Assessment and Plan Heme/ID: Sepsis Bacteremia GPC (10/17) Patient received Vancomycin and Zosyn in the ED Monitor serial lactate Monitor and follow-up blood cultures Empiric antibiotics initiated vancomycin and cefepime Tylenol for temperature greater than 101 5/for Legionellanegative Neurologic: Metabolic encephalopathy secondary to sepsis Avoid sedatives medications Checks per ICU protocol Maintain sleep hygiene 12/17 CT brain- no abnormality Respiratory: No acute issues 10 O2 sat greater than 92%. O2 14 L/m nasal cannula if needed Maintain head of bed greater than 30 Cardiovascular: 12/17 diffuse EKG changes 12/17 echo-Ejection fraction 5560 percent. No regional wall motion abnormalities BNP 156, continue to monitor Serial troponins follow-up Renal: Renal insufficiency No Sanchez -- Strict I/Os FEN/GI: Received 2 L of normal saline on admission (ED) Continue normal saline at 100 cc/hour Heart healthy diet Monitor BMP CT abdomen and pelvis-recommendation for MRI CT repeat with contrast, abnormal liver contour Bowel regimen Follow-up CMP T Bili, alk phosphatase elevated obtain gallbladder ultrasound Endocrine: Glucose monitoring per ICU protocol -- SSI Prophylaxis: GI Prophylaxis Protonix DVT Prophylaxis -- SCDs Heparin SQ Lines: Peripheral IVs 2. Central line if indicated. Code Status Full Discussed Condition With Patient, nurse Emmie Ovalles MD December 18, 2016 11:58
[2016-12-18 12:00] VITALS: BP 97/53; PULSE 78; RESP 16; TEMP 98.3; O2SAT 95
--- NOTE | 2016-12-18 15:50 | EKG ---
Date Performed: 12/17/2016 Time Performed: 10:39:52 PTAGE: 81 years EKG: Sinus rhythm RIGHT BUNDLE BRANCH BLOCK ABNORMAL ECG INTERPRETATION BASED ON A DEFAULT AGE OF 40 YEARS NO PREVIOUS TRACING DOCTOR: Farhan Larkin Interpretating Date/Time 12/18/2016 15:41:34
[2016-12-18 16:00] VITALS: BP 101/57; PULSE 76; RESP 16; TEMP 98.1; O2SAT 94
[2016-12-18] MEDS: cefTRIAXone INJ 2,000 MG in SODIUM CHLORIDE 0.9% INJ 100 ML IV SCH (16:57)
--- NOTE | 2016-12-18 17:25 | MB ---
cc: GRAYSON CHO MD DATE OF CONSULTATION: 12/18/2016 REQUESTING PHYSICIAN: Dr. Ovalles REASON FOR CONSULTATION: Bacteremia. HISTORY OF PRESENT ILLNESS This is a 81-year-old male who presented to the hospital with fever after he was found down on his at home. The patient reportedly was covered in urine and feces. He was noted to have altered mental status on presentation. His temperature was 100.4 degrees in the emergency department and his white count was elevated at 16.7. He also had elevated lactic acid level of 3.3. The patient was evaluated emergency department and radiographic studies were performed including CT scan of the abdomen and pelvis. The patient was noted to have an area of the liver which appears heterogenous and it was not clear whether it is related to a liver mass. Gallbladder ultrasound was performed and showed the right lobe of the liver to have vague area of severe heterogeneity which correlated with the area found on the CT scan. The mass could not be completely excluded. The patient was also has of chronic cholecystitis. The patient denies abdominal pain. He had elevated temperature of 102 degrees after admission. His white blood cell count has decreased. Blood cultures were taken on admission and 3/4 bottles has gram-positive cocci with one identified as strep species. The patient denies to me chills and nausea or vomiting. He appears to speak fairly adequate Yakut. He appears mentally clear. He states that he feels fine. He denies chills and has no nausea or vomiting or abdominal pain. PAST MEDICAL HISTORY: The patient denies. PAST SURGICAL HISTORY The patient denies ALLERGIES NO KNOWN DRUG ALLERGIES. MEDICATIONS 1. Vancomycin 2. Cefepime. 3. Protonix. 4. Colace, subcutaneous. 5. Heparin. SOCIAL HISTORY The patient denies alcohol, tobacco or illicit drugs. FAMILY HISTORY Noncontributory. REVIEW OF SYSTEMS GENERAL: Denies chills or fever prior to admission. HEAD, EYES, EARS, NOSE, AND THROAT: Head, ears, nose and throat: Denies visual blurring or diplopia. Denies nasal drainage. Denies difficulty swallowing or soreness of throat. NECK: Denies neck pain or neck swelling. CARDIOVASCULAR SYSTEM: Denies palpitation or chest pain. RESPIRATORY: Denies shortness of breath or cough. GASTROINTESTINAL: Positive for constipation. Denies abdominal pain, nausea or vomiting. GENITOURINARY: Denies urgency, frequency or dysuria. MUSCULOSKELETAL: Denies muscle aches or pains. ENDOCRINE: Denies polydipsia or polyuria. INTEGUMENTARY: Denies skin rash or itching. HEMATOLOGY: Denies easily bruising or bleeding. PSYCHIATRIC: Denies problems with mood changes or depression. PHYSICAL EXAMINATION IN GENERAL: This is a well-developed slender male in no acute distress. Awake and alert and oriented. VITAL SIGNS: include temperature 98.3, Systolic blood pressure 110, respirations 18. Heart rate 78. HEAD, EYES, EARS, NOSE, AND THROAT: The head is atraumatic, Extraocular movements grossly intact, pupils reactive to light. No icterus. Oropharynx moist mucosa without lesions. NECK: Supple. No adenopathy. LUNGS: Clear breath sounds bilateral. HEART: Regular S1-S2 without Audible murmurs, rubs or gallops. ABDOMEN: Bowel sounds present, soft, no tenderness appreciated. No masses palpable. RECTUM: Rectal was not performed. EXTREMITIES: No clubbing or cyanosis or edema. Nail beds without splinter hemorrhages. SKIN: No rash. NEUROLOGIC: No gross focal findings. PSYCHIATRIC: The patient calm and cooperative. LABORATORY DATA WBC 13.3, platelets 238, hemoglobin 10.4, creatinine 0.88, BUN 19, sodium 142. AST 158, ALT were 267, alkaline phosphatase 101, total bilirubin 3.2. IMPRESSION 1. Sepsis due to strep species. 2. Probable gallbladder disease. Patient with elevated bilirubin in addition to elevated liver function tests and abnormal CT scan findings of the abdomen revealing probable liver mass versus gallbladder disease. 3. Leukocytosis secondary to infection 4. Altered mental status secondary to infection. RECOMMENDATIONS 1. Discontinue cefepime. 2. Begin ceftriaxone intravenous. 3. Continue vancomycin. 4. Monitor blood cultures. 5. Obtain repeat blood cultures since the patient still has problems with hypotension. 6. Consider GI consultation for further evaluation of the liver function tests and possibly further workup of potential liver abnormality on CT scan. Thank you for this consultation. The patient's progress will be monitored. Adjustments will be made to over the antibiotics once cultures become finalized if necessary. Grayson Cho MD FD/erica /4:03 PM /5:10 PM SONU
[2016-12-18 20:00] VITALS: BP 114/56; PULSE 80; PULSE 81; RESP 20; TEMP 98.7; O2SAT 94
[2016-12-19] VITALS (7 sets, daily range): BP systolic 111–138; BP diastolic 64–69; PULSE 68–84; RESP 18–20; TEMP 97.3–98.5; O2SAT 93–97
[2016-12-19] MEDS: HEPARIN SODIUM - SQ 10,000 UNITS/ML VIAL SQ SCH ×2 (03:44→15:48)
[2016-12-19] MEDS: CHLORHEXIDINE GLUCONATE 2 % 1 PACK (2 CLOTHS) TOP SCH (03:45)
[2016-12-19] MEDS: SODIUM CHLOR 0.9% 1000 ML INJ 1,000 ML IV SCH (06:05)
[2016-12-19 06:32] LABS: BASOPHIL % 0.4 % (0.0-2.0); EOSINOPHIL # 0.1 TH/MM3 (0-0.4); EOSINOPHIL % 0.9 % (0.0-4.0); HEMATOCRIT 29.8 % (39.0-51.0); HEMO FLAGS DIFF FINAL; LYMPH % 38.2 % (9.0-44.0); LYMPHOCYTE # 4.1 TH/MM3 (1.0-4.8); MEAN CELL VOLUME 78.7 FL (80.0-100.0); MEAN CORPUSCULAR HEMOGLOBIN 26.4 PG (27.0-34.0); MEAN CORPUSCULAR HGB CONC 33.5 % (32.0-36.0); MONO % 4.6 % (0.0-8.0); NEUT % 55.9 % (16.0-70.0); PLATELET COUNT 234 TH/MM3 (150-450); RED BLOOD COUNT 3.79 MIL/MM3 (4.50-5.90); RED CELL DISTRIBUTION WIDTH 16.1 % (11.6-17.2); WHITE BLOOD COUNT 10.8 TH/MM3 (4.0-11.0)
[2016-12-19 06:52] LABS: BICARBONATE 24.8 MEQ/L (21.0-32.0); POTASSIUM 3.7 MEQ/L (3.5-5.1)
[2016-12-19] MEDS: SODIUM CHLORIDE 0.9% FLUSH 10 ML FLUSH IV FLUSH SCH ×2 (09:05→20:36)
[2016-12-19] MEDS: PANTOPRAZOLE SODIUM 40 MG VIAL IV SCH (09:05)
[2016-12-19] MEDS: DOCUSATE SODIUM 100 MG CAP PO SCH ×2 (09:05→21:00)
[2016-12-19] MEDS: SODIUM CHLOR 0.45% 1000 ML INJ 1,000 ML IV SCH (09:16)
--- NOTE | 2016-12-19 11:26 | PD.CONS ---
HPI History of Present Illness This is a 81 year old male [place] origin who presented to the ED after he was found down covered by urine and feces by . He had AMS on presentation. Blood work revealed sepsis due to strep species. Currently on Ceftriaxone and vanco managed by ID. Currently patient alert and Oriented. He denies much of any symptoms. He tells me he was asleep when he fell out of bed then can't recall any events after wards. He denies previous hx of this. States he only takes HCTZ and MOM at home. He denies any major medical history. GI have been consulted for abnormal LFTs, and liver mass versus gall bladder disease. Patient denies previous hx of liver disease, denies alcohol. He denies herbs, Tylenol or recent abx. .US on (12/18/16) Vague area of heterogeneity in the area of concern within the central portions of the right lobe of the liver which correlates to the area on the prior CT. The exact etiology is uncertain. I cannot completely exclude a mass. MRI is suggested to further evaluate. 2. Chronic cholecystitis. Details given above. Non contrasted Ct on (12/17/16) 1. No definite acute finding is identified. However, the central liver appears somewhat heterogeneous and it is not clear if this is related to a liver mass, abnormal gallbladder, or artifact. When the patient's condition permits suggest contrast enhanced CT or MRI of the liver. 2. There is a single mildly enlarged aortocaval lymph node. No other lymphadenopathy is present. 3. Nonacute findings include moderate atherosclerotic disease and prostatomegaly. On presentation, he was hypotensive, high lactic acid, high WBC, AST 697 [id number], ALP 155, bili 2.4, yesterday AST 158 [id number] bili 3.2. He states he had episodes of vomiting when he was found by . Currently patient doing good. He denies nausea, vomiting, fever, chills, abdomen pain, change in bowel, melena or hematochezia. He reports dark urine. (Sharan Tovar) PFSH Past Medical History HTN Past Surgical History None (Sharan Tovar) Coded Allergies: UNOBTAINABLE (Unverified , 12/17/16) Medications Current Medications Medications (Trade) Dose Ordered Sig/Noe Route Start Time Stop Time Status Last Admin (NS Flush) 2 ml UNSCH PRN IV FLUSH 12/17/16 14:15 (NS Flush) 2 ml BID IV FLUSH 12/17/16 21:00 12/19/16 09:05 (Tylenol) 650 mg Q6H PRN PO 12/17/16 14:15 (Protonix Inj) 40 mg DAILY IV 12/18/16 09:00 12/19/16 09:05 (Zofran Inj) 4 mg Q6H PRN IV 12/17/16 14:15 (Colace) 100 mg BID PO 12/17/16 21:00 12/19/16 09:05 (Milk Of Shivam Liq) 30 ml Q12H PRN PO 12/17/16 14:15 (Senokot) 17.2 mg Q12H PRN PO 12/17/16 14:15 12/19/16 09:05 (Heparin Inj) 5,000 units Q12H SQ 12/17/16 15:00 12/19/16 03:44 Miscellaneous Information 1 Q361D XX 12/17/16 14:15 (Chlorhexidine 2% Cloth) 3 pack Taper DAILY@04 TOP 12/18/16 04:00 12/14/17 03:59 Chlorhexidine Gluconate 3 pack 3 pack UNSCH PRN TOP 12/17/16 14:15 (Vancomycin Consult Pharmacy) 0 ml @ 0 mls/hr UNSCH OTHER 12/17/16 14:15 Miscellaneous Information SPECIFIC LAB TO BE DRAWN:VANCOMYCIN TROUGH DATE TO... ONCE ONCE .XX 12/20/16 11:45 12/20/16 11:46 Vancomycin HCl 1250 mg/Sodium Chloride 262.5 ml @ 250 mls/hr Q18H IV 12/19/16 18:00 Ceftriaxone Sodium 2000 mg/ Sodium Chloride 100 ml @ 200 mls/hr Q24H IV 12/18/16 17:00 12/18/16 16:57 (1/2 NS 1000 ml Inj) 1,000 ml @ 84 mls/hr [id number] IV 12/19/16 09:15 12/19/16 09:16 Family History No family hx of liver cancer Social History negative X 3 (Sharan Tovar) Review of Systems Constitutional: DENIES: Fever, Weight loss, Chills Endocrine: DENIES: Polyuria Eyes: DENIES: Photosensitivity Ears, nose, mouth, throat: DENIES: Hoarseness Respiratory: DENIES: Shortness of breath Cardiovascular: DENIES: Lower Extremity Edema Gastrointestinal: COMPLAINS OF: Constipation, Nausea, Vomiting, DENIES: Abdominal pain, Black stools, Bloody stools, Diarrhea, Difficulty Swallowing, Anorexia, Odynophagia, Swelling of Abdomen, Heartburn, Hematemesis Genitourinary: DENIES: Hematuria Musculoskeletal: DENIES: Joint Swelling Integumentary: DENIES: Pruritus Hematologic/lymphatic: DENIES: Bruising Immunologic/allergic: DENIES: Eczema Neurologic: DENIES: Abnormal gait Psychiatric: DENIES: Anxiety (Sharan Tovar) GI Exam Vitals I&O Vital Signs Date Time Temp Pulse Resp B/P Pulse Ox O2 Delivery O2 Flow Rate FiO2 12/19/16 08:19 80 12/19/16 08:00 97.3 79 18 113/66 93 12/19/16 04:00 97.9 68 20 135/66 95 12/19/16 00:00 98.5 76 18 138/64 97 12/18/16 20:00 98.7 80 20 114/56 94 12/18/16 20:00 81 12/18/16 16:00 98.1 76 16 101/57 94 12/18/16 12:00 98.3 78 16 97/53 95 12/18/16 11:45 77 I/O 12/18/16 12/18/16 12/18/16 12/19/16 12/19/16 12/19/16 07:00 15:00 23:00 07:00 15:00 23:00 Intake Total 0 ml 240 ml 1200 ml 728 ml Output Total 550 ml 525 ml 350 ml Balance -550 ml -285 ml 1200 ml 378 ml Intake Oral 0 ml 240 ml 0 ml IV Total 1200 ml 728 ml Output Urine Total 550 ml 525 ml 350 ml # Bowel Movements 0 0 Imaging Last Impressions Gall Bladder Ultrasound 12/18/16 0000 Signed Impressions: Service Date/Time: Sunday, December 18, 2016 08:40 - CONCLUSION: 1. Vague area of heterogeneity in the area of concern within the central portions of the right lobe of the liver which correlates to the area on the prior CT. The exact etiology is uncertain. I cannot completely exclude a mass. MRI is suggested to further evaluate. 2. Chronic cholecystitis. Details given above. Eder Vitale Jr., MD Head CT 12/17/16 1010 Signed Impressions: Service Date/Time: December 11:04 - CONCLUSION: Normal examination. Eder Vitale Jr., MD Chest X-Ray 12/17/16 1010 Signed Impressions: Service Date/Time: December 10:34 - CONCLUSION: Underinflated examination without an acute finding identified. Cardiac silhouette size is at the upper limits for normal. Bunny Dangelo MD Cervical Spine CT 12/17/16 0000 Signed Impressions: Service Date/Time: December 11:04 - CONCLUSION: 1. No fracture or dislocation. 2. Degenerative changes as detailed above. Eder Vitale Jr., MD Abdomen/Pelvis CT 12/17/16 0000 Signed Impressions: Service Date/Time: December 11:14 - CONCLUSION: 1. No definite acute finding is identified. However, the central liver appears somewhat heterogeneous and it is not clear if this is related to a liver mass, abnormal gallbladder, or artifact. When the patient's condition permits suggest contrast enhanced CT or MRI of the liver. 2. There is a single mildly enlarged aortocaval lymph node. No other lymphadenopathy is present. 3. Nonacute findings include moderate atherosclerotic disease and prostatomegaly. Bunny Dangelo MD Laboratory Test 12/19/16 05:58 White Blood Count 10.8 TH/MM3 Red Blood Count 3.79 MIL/MM3 Hemoglobin 10.0 GM/DL Hematocrit 29.8 % Mean Corpuscular Volume 78.7 FL Mean Corpuscular Hemoglobin 26.4 PG Mean Corpuscular Hemoglobin 33.5 % Concent Red Cell Distribution Width 16.1 % Platelet Count 234 TH/MM3 Mean Platelet Volume 8.6 FL Neutrophils (%) (Auto) 55.9 % Lymphocytes (%) (Auto) 38.2 % Monocytes (%) (Auto) 4.6 % Eosinophils (%) (Auto) 0.9 % Basophils (%) (Auto) 0.4 % Neutrophils # (Auto) 6.0 TH/MM3 Lymphocytes # (Auto) 4.1 TH/MM3 Monocytes # (Auto) 0.5 TH/MM3 Eosinophils # (Auto) 0.1 TH/MM3 Basophils # (Auto) 0.0 TH/MM3 CBC Comment DIFF FINAL Differential Comment Sodium Level 141 MEQ/L Potassium Level 3.7 MEQ/L Chloride Level 110 MEQ/L Carbon Dioxide Level 24.8 MEQ/L Anion Gap 6 MEQ/L Blood Urea Nitrogen 17 MG/DL Creatinine 0.93 MG/DL Estimat Glomerular Filtration 78 ML/MIN Rate Random Glucose 187 MG/DL Calcium Level 7.6 MG/DL Date/Time Procedure Status Source Growth 12/19/16 06:07 Aerobic Blood Culture Received Blood Peripheral Pending 12/19/16 06:07 Anaerobic Blood Culture Received Blood Peripheral Pending 12/17/16 10:25 Legionella Antigen - Final Complete Urine Random Urine PRESUMPTIVE NEGATIVE FOR LEGIONELLA P... 12/17/16 10:25 Aerobic Blood Culture - Final Resulted Blood Peripheral Staph Sp Coagulase Negative 12/17/16 10:25 Anaerobic Blood Culture - Preliminary Resulted Viridans Streptococcus [facility] 12/17/16 10:20 Aerobic Blood Culture - Preliminary Resulted Blood Peripheral Viridans Streptococcus [facility] 12/17/16 10:20 Anaerobic Blood Culture - Preliminary Resulted Blood Peripheral NO GROWTH IN 1 DAY Physical Examination HEENT: Pupils round and reactive to light; normocephalic; atraumatic; no jaundice. NECK: Neck is supple, no JVD, no lymphadenopathy. CHEST: Chest is clear to auscultation and percussion. CARDIAC: Regular rate and rhythm with no murmur gallop or rubs. ABDOMEN: Soft, nondistended, nontender; no hepatosplenomegaly; bowel sounds are present in all four quadrants. EXTREMITIES: No clubbing, cyanosis, or edema. SKIN: Normal; no rash; no jaundice. APPRENTICE ARCHITECT: No focal deficits; alert and oriented times three. (Guy,Sharan TORRES) Assessment and Plan Plan - Elevated LFTs possible liver mass vs gallbladder dz- LFTs improving, multifactorial possible shocked liver vs liver mass or gallbladder On presentation, he was hypotensive, high lactic acid, high WBC, AST 697 [id number] , ALP 155, bili 2.4, yesterday AST 158 [id number] bili 3.2. Toxicology negative US on (12/18/16) Vague area of heterogeneity in the area of concern within the central portions of the right lobe of the liver which correlates to the area on the prior CT. The exact etiology is uncertain. I cannot completely exclude a mass. MRI is suggested to further evaluate. 2. Chronic cholecystitis. Details given above. Non contrasted Ct on (12/17/16) 1. No definite acute finding is identified. However, the central liver appears somewhat heterogeneous and it is not clear if this is related to a liver mass, abnormal gallbladder, or artifact. When the patient's condition permits suggest contrast enhanced CT or MRI of the liver. 2. There is a single mildly enlarged aortocaval lymph node. No other lymphadenopathy is present. 3. Nonacute findings include moderate atherosclerotic disease and prostatomegaly. Patient denies previous hx of liver disease, denies alcohol. He denies herbs, Tylenol or recent abx. - Sepsis due to to strep species- Currently on Ceftriaxone and vanco managed by ID. - leukocytosis- improved - AMS- improved head Ct negative - HTN per attending Plan: - TONI - MRI - SOMMER, ASMA, AMA, ceruloplasmin, alpha antitrypsin deficiency, hepatitis panel, iron studies, celiac panel, - tumor markers - Monitor labs - Further recommendation to follow pending results above - Supportive care - Patient seen and examined by dr. Rosenberg and myself and this note is written on his behalf. (Sharan Tovar) Physician Comments Seen and examined with [employer]IN[employer] TE[employer]ER, MRCP ordered. Consider GS consult. LFTs improving, maybe passed a stone. Monitor labs. Thanknayla (Emma Rosenberg MD) Sharan Tovar December 19, 2016 11:26 Emma Rosenberg MD December 19, 2016 13:39
--- NOTE | 2016-12-19 12:44 | HHI.PR ---
Subjective Remarks Was seen earlier today. He is in bed, appears in nad. Says he is eating well. No chest pain or sob. No cough, fever or chills. No n/v/d/c. Objective Vitals Vital Signs Date Time Temp Pulse Resp B/P Pulse Ox O2 Delivery O2 Flow Rate FiO2 12/19/16 12:00 97.6 79 20 136/67 95 12/19/16 08:19 80 12/19/16 08:00 97.3 79 18 113/66 93 12/19/16 04:00 97.9 68 20 135/66 95 12/19/16 00:00 98.5 76 18 138/64 97 12/18/16 20:00 98.7 80 20 114/56 94 12/18/16 20:00 81 12/18/16 16:00 98.1 76 16 101/57 94 I/O 12/18/16 12/18/16 12/18/16 12/19/16 12/19/16 12/19/16 07:00 15:00 23:00 07:00 15:00 23:00 Intake Total 0 ml 240 ml 1200 ml 728 ml Output Total 550 ml 525 ml 350 ml Balance -550 ml -285 ml 1200 ml 378 ml Intake Oral 0 ml 240 ml 0 ml IV Total 1200 ml 728 ml Output Urine Total 550 ml 525 ml 350 ml # Bowel Movements 0 0 Result Diagram: 12/19/16 0558 12/19/16 0558 Imaging Last Impressions Gall Bladder Ultrasound 12/18/16 0000 Signed Impressions: Service Date/Time: Sunday, December 18, 2016 08:40 - CONCLUSION: 1. Vague area of heterogeneity in the area of concern within the central portions of the right lobe of the liver which correlates to the area on the prior CT. The exact etiology is uncertain. I cannot completely exclude a mass. MRI is suggested to further evaluate. 2. Chronic cholecystitis. Details given above. Eder Vitale Jr., MD Head CT 12/17/16 1010 Signed Impressions: Service Date/Time: December 11:04 - CONCLUSION: Normal examination. Eder Vitale Jr., MD Chest X-Ray 12/17/16 1010 Signed Impressions: Service Date/Time: December 10:34 - CONCLUSION: Underinflated examination without an acute finding identified. Cardiac silhouette size is at the upper limits for normal. Bunny Dangelo MD Cervical Spine CT 12/17/16 0000 Signed Impressions: Service Date/Time: December 11:04 - CONCLUSION: 1. No fracture or dislocation. 2. Degenerative changes as detailed above. Eder Vitale Jr., MD Abdomen/Pelvis CT 12/17/16 0000 Signed Impressions: Service Date/Time: December 11:14 - CONCLUSION: 1. No definite acute finding is identified. However, the central liver appears somewhat heterogeneous and it is not clear if this is related to a liver mass, abnormal gallbladder, or artifact. When the patient's condition permits suggest contrast enhanced CT or MRI of the liver. 2. There is a single mildly enlarged aortocaval lymph node. No other lymphadenopathy is present. 3. Nonacute findings include moderate atherosclerotic disease and prostatomegaly. Bunny Dangelo MD Objective Remarks GENERAL: Elderly appearing gentleman, in no apparent distress, appropriately conversant SKIN: Warm and dry. HEAD: Atraumatic. Normocephalic. EYES: Pupils equal and round, 3 mm breath. No scleral icterus. No injection or drainage. ENT: No nasal bleeding or discharge. Mucous membranes pink and moist. NECK: Trachea midline. No JVD. CARDIOVASCULAR: Normal rate, regular rhythm. RESPIRATORY: No accessory muscle use. Clear to auscultation. Breath sounds equal bilaterally. GASTROINTESTINAL: Abdomen soft, non-tender, nondistended. No guarding. MUSCULOSKELETAL: Extremities without clubbing, cyanosis, or edema. No obvious deformities. NEUROLOGICAL: Awake and alert. RASS 0. No gross focal/sensory deficits. Follows commands in all 4 extremities. A/P Assessment and Plan Heme/ID: Sepsis Bacteremia GPC (10/17) Patient received Vancomycin and Zosyn in the ED Monitor serial lactate Monitor and follow-up blood cultures Empiric antibiotics initiated vancomycin and cefepime. Consult ID , seen by Dr Bo. DC cefepime and start rocephine, cont vanco. Tylenol for temperature greater than 101 5/for Legionellanegative Neurologic: Metabolic encephalopathy secondary to sepsis Avoid sedatives medications Checks per ICU protocol Maintain sleep hygiene 12/17 CT brain- no abnormality Respiratory: No acute issues 10 O2 sat greater than 92%. O2 14 L/m nasal cannula if needed Maintain head of bed greater than 30 Cardiovascular: 12/17 diffuse EKG changes 12/17 echo-Ejection fraction 5560 percent. No regional wall motion abnormalities BNP 156, continue to monitor Serial troponins follow-up Renal: Renal insufficiency No Ward -- Strict I/Os FEN/GI: Received 2 L of normal saline on admission (ED) Continue normal saline at 100 cc/hour Heart healthy diet Monitor BMP CT abdomen and pelvis-recommendation for MRI CT repeat with contrast, abnormal liver contour Bowel regimen Follow-up CMP T Bili, alk phosphatase elevated Consult GI , also poss mass on CT abd Endocrine: Glucose monitoring per ICU protocol -- SSI Prophylaxis: GI Prophylaxis --Protonix DVT Prophylaxis-- SCDs Heparin SQ DC ward, monitor voiding Code Status Full Discussed Condition With Patient, nurse Emmie Ovalles MD December 19, 2016 12:44
[2016-12-19 13:18] LABS: ALKALINE PHOSPHATASE 95 U/L (45-117); ALT (GPT) 171 U/L (12-78); AST (GOT) 62 U/L (15-37); FERRITIN 30 NG/ML (26-388); INDIRECT BILIRUBIN 0.2 MG/DL (0.0-0.8); TOTAL BILIRUBIN ADULT 0.8 MG/DL (0.2-1.0); TRANSFERRIN IRON PROFILE 194 MG/DL (200-360)
[2016-12-19] MEDS ORDERED: GADODIAMIDE PF 287 MG/ML 20 ML VIAL (for RAD MRI) IV ONE (15:11)
[2016-12-19] MEDS: cefTRIAXone INJ 2,000 MG in SODIUM CHLORIDE 0.9% INJ 100 ML IV SCH (15:48)
--- NOTE | 2016-12-19 16:50 | RADRPT ---
EXAM DATE/TIME: 12/19/2016 15:02 [facility] COMPARISON: No previous studies available for comparison. INDICATIONS : Abnormal CT scan. CONTRAST: 16 cc Omniscan (gadodiamide) IV MEDICAL HISTORY : None. SURGICAL HISTORY : None. ENCOUNTER: Initial ACUITY: 2 day PAIN SCORE: 0/10 LOCATION: upper quadrant TECHNIQUE: Multiplanar, multisequence magnetic resonance imaging of the abdomen was performed without and with i ntravenous contrast. FINDINGS: There are small bilateral pleural effusions. The gallbladder wall is thickened up to about 6 mm and there is some enhancement of normal postcontra st images could indicate a mild low grade cholecystitis. Gallbladder sludge is present. No definite g [place]stone. No acute findings in the liver, spleen, adrenals, kidneys or pancreas. CONCLUSION: 1. No discrete abnormality identified in the liver. 2. Gallbladder wall thickening to 6 mm with some mural enhancement. A mild or low grade cholecystitis could give this appearance. 3. Small bilateral pleural effusions. Jorge Luis White MD on December 19, 2016 at 16:41 Board Certified Radiologist. This report was verified electronically.
[2016-12-19] MEDS ORDERED: VANCOMYCIN INJ 1,250 MG in SODIUM CHLOR 0.9% 250 ML INJ 250 ML IV SCH (18:00)
--- NOTE | 2016-12-19 18:18 | HHI.IDPN ---
Subjective Subjective Remarks [facility] . is an 81-year-old male who presented to the hospital with fever after he was found down on his at home. The patient reportedly was covered in urine and feces. He was noted to have altered mental status on presentation. His temperature was 100.4 degrees in the emergency department and his white count was elevated at 16.7. He also had elevated lactic acid level of 3.3. The patient was evaluated emergency department and radiographic studies were performed including CT scan of the abdomen and pelvis. The patient was noted to have an area of the liver which appears heterogenous and it was not clear whether it is related to a liver mass. Gallbladder ultrasound was performed and showed the right lobe of the liver to have vague area of severe heterogeneity which correlated with the area found on the CT scan. The mass could not become completely excluded. The patient was also has of chronic cholecystitis. ID consulted for evaluation of sepsis, Strep Overnight events reviewed. No fevers No rash No diarrhea No abd pain or N/V S/b GI: ? passed GB stone. Antibiotics Ceftriaxone IV Vancomycin IV Lines Line sites with no evidence of infection. Past Medical History Reviewed. Allergies: Coded Allergies: UNOBTAINABLE (Unverified , 12/17/16) Objective . Vital Signs Date Time Temp Pulse Resp B/P Pulse Ox O2 Delivery O2 Flow Rate FiO2 12/19/16 16:00 98.5 82 20 136/64 95 12/19/16 12:00 97.6 79 20 136/67 95 12/19/16 08:19 80 12/19/16 08:00 97.3 79 18 113/66 93 12/19/16 04:00 97.9 68 20 135/66 95 12/19/16 00:00 98.5 76 18 138/64 97 12/18/16 20:00 98.7 80 20 114/56 94 12/18/16 20:00 81 12/18/16 12/18/16 12/19/16 15:00 23:00 07:00 Intake Total 240 ml 1200 ml 728 ml Output Total 525 ml 350 ml Balance -285 ml 1200 ml 378 ml Intake Oral 240 ml 0 ml IV Total 1200 ml 728 ml Output Urine Total 525 ml 350 ml # Bowel Movements 0 . Laboratory Tests Test 12/18/16 12/19/16 08:48 05:58 White Blood Count 13.3 TH/MM3 10.8 TH/MM3 Red Blood Count 3.94 MIL/MM3 3.79 MIL/MM3 Hemoglobin 10.4 GM/DL 10.0 GM/DL Hematocrit 31.1 % 29.8 % Mean Corpuscular Volume 79.0 FL 78.7 FL Mean Corpuscular Hemoglobin 26.3 PG 26.4 PG Mean Corpuscular Hemoglobin 33.4 % 33.5 % Concent Red Cell Distribution Width 15.5 % 16.1 % Platelet Count 238 TH/MM3 234 TH/MM3 Mean Platelet Volume 8.6 FL 8.6 FL Neutrophils (%) (Auto) 64.1 % 55.9 % Lymphocytes (%) (Auto) 30.3 % 38.2 % Monocytes (%) (Auto) 4.9 % 4.6 % Eosinophils (%) (Auto) 0.4 % 0.9 % Basophils (%) (Auto) 0.3 % 0.4 % Neutrophils # (Auto) 8.5 TH/MM3 6.0 TH/MM3 Lymphocytes # (Auto) 4.0 TH/MM3 4.1 TH/MM3 Monocytes # (Auto) 0.6 TH/MM3 0.5 TH/MM3 Eosinophils # (Auto) 0.1 TH/MM3 0.1 TH/MM3 Basophils # (Auto) 0.0 TH/MM3 0.0 TH/MM3 CBC Comment DIFF FINAL DIFF FINAL Differential Comment Laboratory Tests Test 12/17/16 12/18/16 12/19/16 12/19/16 23:27 08:48 05:58 12:15 Lactic Acid Level 1.6 mmol/L 1.0 mmol/L Sodium Level 142 MEQ/L 141 MEQ/L Potassium Level 3.5 MEQ/L 3.7 MEQ/L Chloride Level 110 MEQ/L 110 MEQ/L Carbon Dioxide Level 24.6 MEQ/L 24.8 MEQ/L Anion Gap 7 MEQ/L 6 MEQ/L Blood Urea Nitrogen 19 MG/DL 17 MG/DL Creatinine 0.88 MG/DL 0.93 MG/DL Estimat Glomerular Filtration 83 ML/MIN 78 ML/MIN Rate Random Glucose 115 MG/DL 187 MG/DL Calcium Level 7.3 MG/DL 7.6 MG/DL Protein Corrected Calcium 8.1 MG/DL Phosphorus Level 2.1 MG/DL Magnesium Level 2.3 MG/DL Total Bilirubin 3.2 MG/DL 0.8 MG/DL Aspartate Amino Transf 158 U/L 62 U/L (AST/SGOT) Alanine Aminotransferase 267 U/L 171 U/L (ALT/SGPT) Alkaline Phosphatase 101 U/L 95 U/L B-Type Natriuretic Peptide 542 PG/ML Total Protein 5.6 GM/DL 6.0 GM/DL Albumin 2.4 GM/DL 2.5 GM/DL Iron Level 19 MCG/DL Total Iron Binding Capacity 272 MCG/DL Percent Iron Saturation 7.0 % Ferritin 30 NG/ML Direct Bilirubin 0.6 MG/DL Indirect Bilirubin 0.2 MG/DL Tumor Marker Alpha Fetoprotein 1.1 NG/ML Carcinoembryonic Antigen 2.6 NG/ML CA 19-9 Antigen 4.7 U/ML Microbiology Date/Time Procedure Status Source Growth 12/17/16 10:20 Aerobic Blood Culture - Preliminary Resulted Blood Peripheral Viridans Streptococcus Grp 12/17/16 10:20 Anaerobic Blood Culture - Preliminary Resulted Blood Peripheral NO GROWTH IN 2 DAYS 12/17/16 10:25 Aerobic Blood Culture - Final Resulted Blood Peripheral Staph Sp Coagulase Negative 12/17/16 10:25 Anaerobic Blood Culture - Preliminary Resulted Viridans Streptococcus Grp 12/17/16 10:25 Legionella Antigen - Final Complete Urine Random Urine PRESUMPTIVE NEGATIVE FOR LEGIONELLA P... 12/19/16 05:58 Aerobic Blood Culture Received Blood Peripheral Pending 12/19/16 05:58 Anaerobic Blood Culture Received Blood Peripheral Pending 12/19/16 06:07 Aerobic Blood Culture Received Blood Peripheral Pending 12/19/16 06:07 Anaerobic Blood Culture Received Blood Peripheral Pending Imaging Last Impressions Abdomen MRI 12/19/16 0000 Signed Impressions: Service Date/Time: Monday, December 19, 2016 15:02 - CONCLUSION: 1. No discrete abnormality identified in the liver. 2. Gallbladder wall thickening to 6 mm with some mural enhancement. A mild or low grade cholecystitis could give this appearance. 3. Small bilateral pleural effusions. Jorge Luis White MD Gall Bladder Ultrasound 12/18/16 0000 Signed Impressions: Service Date/Time: Sunday, December 18, 2016 08:40 - CONCLUSION: 1. Vague area of heterogeneity in the area of concern within the central portions of the right lobe of the liver which correlates to the area on the prior CT. The exact etiology is uncertain. I cannot completely exclude a mass. MRI is suggested to further evaluate. 2. Chronic cholecystitis. Details given above. Eder Vitale Jr., MD Head CT 12/17/16 1010 Signed Impressions: Service Date/Time: December 11:04 - CONCLUSION: Normal examination. Eder Vitale Jr., MD Chest X-Ray 12/17/16 1010 Signed Impressions: Service Date/Time: December 10:34 - CONCLUSION: Underinflated examination without an acute finding identified. Cardiac silhouette size is at the upper limits for normal. Bunny Dangelo MD Cervical Spine CT 12/17/16 0000 Signed Impressions: Service Date/Time: December 11:04 - CONCLUSION: 1. No fracture or dislocation. 2. Degenerative changes as detailed above. Eder Vitale Jr., MD Abdomen/Pelvis CT 12/17/16 0000 Signed Impressions: Service Date/Time: December 11:14 - CONCLUSION: 1. No definite acute finding is identified. However, the central liver appears somewhat heterogeneous and it is not clear if this is related to a liver mass, abnormal gallbladder, or artifact. When the patient's condition permits suggest contrast enhanced CT or MRI of the liver. 2. There is a single mildly enlarged aortocaval lymph node. No other lymphadenopathy is present. 3. Nonacute findings include moderate atherosclerotic disease and prostatomegaly. Bunny Dangelo MD Physical Exam N GENERAL: This is a well-developed slender male in no acute distress. Awake and alert and oriented. HEAD, EYES, EARS, NOSE, AND THROAT: The head is atraumatic, Extraocular movements grossly intact, pupils reactive to light. No icterus. Oropharynx moist mucosa without lesions. NECK: Supple. No adenopathy. LUNGS: Clear breath sounds bilateral. HEART: Regular S1-S2 without Audible murmurs, rubs or gallops. ABDOMEN: Bowel sounds present, soft, no tenderness appreciated. No masses palpable. RECTUM: Rectal was not performed. EXTREMITIES: No clubbing or cyanosis or edema. Nail beds without splinter hemorrhages. SKIN: No rash. NEUROLOGIC: No gross focal findings. PSYCHIATRIC: The patient calm and cooperative. Assessment & Plan Remarks Sepsis due to strep species Source likely gallbladder or liver. Leukocytosis secondary to infection Acute metabolic encephalopathy likely secondary to infection appears to be improving. Abnormal liver function tests. Recommendations GI consult already placed in a.m. Continue ceftriaxone IV Discontinue vancomycin IV Follow repeat blood cultures if negative at 48 hours and doing well on ceftriaxone IV and susceptible to Levaquin may possibly go home on oral regimen for 2 weeks. Levaquin is the only antibiotic that has good bioavailability and recommended for oral regimen. For every other oral option for antibiotic is important that infectious disease physician give recommendation. She definitely needing needs evaluation of the liver mass at some point probably can be done as outpatient. Laurent DOTY to coordinate this with patient's primary care physician. If blood cultures are persistently positive patient will need further endovascular workup. Dr. Juarez to decide this on Wednesday, December 21, 2016. I will follow when necessary over the weekend Lana Perera MD December 19, 2016 18:18
[2016-12-20] VITALS (7 sets, daily range): BP systolic 110–155; BP diastolic 64–69; PULSE 74–88; RESP 16–20; TEMP 97.2–98.4; O2SAT 93–100
[2016-12-20] MEDS: HEPARIN SODIUM - SQ 10,000 UNITS/ML VIAL SQ SCH ×2 (03:48→16:12)
[2016-12-20] MEDS: SODIUM CHLOR 0.45% 1000 ML INJ 1,000 ML IV SCH ×3 (03:49→21:00)
[2016-12-20] MEDS: CHLORHEXIDINE GLUCONATE 2 % 1 PACK (2 CLOTHS) TOP SCH (04:00)
[2016-12-20] MEDS: SODIUM CHLORIDE 0.9% FLUSH 10 ML FLUSH IV FLUSH SCH ×2 (08:12→21:32)
[2016-12-20] MEDS: PANTOPRAZOLE SODIUM 40 MG VIAL IV SCH (08:12)
[2016-12-20] MEDS: DOCUSATE SODIUM 100 MG CAP PO SCH ×2 (08:12→21:00)
--- NOTE | 2016-12-20 11:01 | HHI.PR ---
Subjective Remarks he feels tired. He says he doesn;t have any fever or chills. No abdoinal pain. No n/v/d/c. eating well. No h/o bleeding, stool is normal color. Objective Vitals Vital Signs Date Time Temp Pulse Resp B/P Pulse Ox O2 Delivery O2 Flow Rate FiO2 12/20/16 08:15 77 12/20/16 08:00 98.0 78 20 128/66 93 12/20/16 04:00 97.2 74 18 149/69 95 12/20/16 00:00 97.7 82 16 155/69 95 12/19/16 20:00 98.2 84 18 111/69 96 12/19/16 20:00 78 12/19/16 16:00 98.5 82 20 136/64 95 12/19/16 12:00 97.6 79 20 136/67 95 I/O 12/19/16 12/19/16 12/19/16 12/20/16 12/20/16 12/20/16 07:00 15:00 23:00 07:00 15:00 23:00 Intake Total 728 ml 1094 ml 723 ml 0 ml Output Total 350 ml 650 ml Balance 378 ml 444 ml 723 ml 0 ml Intake Oral 0 ml 480 ml 120 ml 0 ml IV Total 728 ml 614 ml 603 ml Output Urine Total 350 ml 650 ml # Voids 1 1 1 # Bowel Movements 0 1 0 1 Result Diagram: 12/19/16 0558 12/19/16 0558 Imaging Last Impressions Abdomen MRI 12/19/16 0000 Signed Impressions: Service Date/Time: Monday, December 19, 2016 15:02 - CONCLUSION: 1. No discrete abnormality identified in the liver. 2. Gallbladder wall thickening to 6 mm with some mural enhancement. A mild or low grade cholecystitis could give this appearance. 3. Small bilateral pleural effusions. Jorge Luis White MD Gall Bladder Ultrasound 12/18/16 0000 Signed Impressions: Service Date/Time: Sunday, December 18, 2016 08:40 - CONCLUSION: 1. Vague area of heterogeneity in the area of concern within the central portions of the right lobe of the liver which correlates to the area on the prior CT. The exact etiology is uncertain. I cannot completely exclude a mass. MRI is suggested to further evaluate. 2. Chronic cholecystitis. Details given above. Eder Vitale Jr., MD Head CT 12/17/16 1010 Signed Impressions: Service Date/Time: December 11:04 - CONCLUSION: Normal examination. Eder Vitale Jr., MD Chest X-Ray 12/17/16 1010 Signed Impressions: Service Date/Time: December 10:34 - CONCLUSION: Underinflated examination without an acute finding identified. Cardiac silhouette size is at the upper limits for normal. Bunny Dangelo MD Cervical Spine CT 12/17/16 0000 Signed Impressions: Service Date/Time: , December 17, 2016 11:04 - CONCLUSION: 1. No fracture or dislocation. 2. Degenerative changes as detailed above. Eder Vitale Jr., MD Abdomen/Pelvis CT 12/17/16 0000 Signed Impressions: Service Date/Time: December 11:14 - CONCLUSION: 1. No definite acute finding is identified. However, the central liver appears somewhat heterogeneous and it is not clear if this is related to a liver mass, abnormal gallbladder, or artifact. When the patient's condition permits suggest contrast enhanced CT or MRI of the liver. 2. There is a single mildly enlarged aortocaval lymph node. No other lymphadenopathy is present. 3. Nonacute findings include moderate atherosclerotic disease and prostatomegaly. Bunny Dangelo MD Objective Remarks GENERAL: Elderly appearing gentleman, in no apparent distress, appropriately conversant SKIN: Warm and dry. HEAD: Atraumatic. Normocephalic. EYES: Pupils equal and round, 3 mm breath. No scleral icterus. No injection or drainage. ENT: No nasal bleeding or discharge. Mucous membranes pink and moist. NECK: Trachea midline. No JVD. CARDIOVASCULAR: Normal rate, regular rhythm. RESPIRATORY: No accessory muscle use. Clear to auscultation. Breath sounds equal bilaterally. GASTROINTESTINAL: Abdomen soft, non-tender, nondistended. No guarding. MUSCULOSKELETAL: Extremities without clubbing, cyanosis, or edema. No obvious deformities. NEUROLOGICAL: Awake and alert. RASS 0. No gross focal/sensory deficits. Follows commands in all 4 extremities. A/P Assessment and Plan Heme/ID: Sepsis Bacteremia GPC (3/4). Repeat blood cx 12/19/16 are NTD Patient received Vancomycin and Zosyn in the ED Monitor serial lactate Monitor and follow-up blood cultures Empiric antibiotics initiated vancomycin and cefepime. Consult ID , seen by Dr Bo. DC cefepime and start rocephine, cont vanco. ID following. Tylenol for temperature greater than 101 5/for Legionellanegative Iron deficiency anemia./ Start iron supplement. Give venofer IV today. Neurologic: Metabolic encephalopathy secondary to sepsis Avoid sedatives medications Checks per ICU protocol Maintain sleep hygiene 12/17 CT brain- no abnormality Respiratory: No acute issues 10 O2 sat greater than 92%. O2 14 L/m nasal cannula if needed Maintain head of bed greater than 30 Cardiovascular: 12/17 diffuse EKG changes 12/17 echo-Ejection fraction 5560 percent. No regional wall motion abnormalities BNP 156, continue to monitor Serial troponins neg Renal: Renal insufficiency No Ward -- Strict I/Os FEN/GI: Received 2 L of normal saline on admission (ED) Continue normal saline at 100 cc/hour Heart healthy diet Monitor BMP CT abdomen and pelvis-recommendation for MRI CT repeat with contrast, abnormal liver contour Bowel regimen Follow-up CMP T Bili, alk phosphatase noted elevated and GI was consulted. Trend levels improving. Consult GI , appreciate recommendations. work up pending, tumor markers so far negative Endocrine: Glucose monitoring per ICU protocol -- SSI Prophylaxis: GI Prophylaxis --Protonix DVT Prophylaxis-- SCDs Heparin SQ DC ward, monitor voiding Code Status Full Discussed Condition With Patient, nurse Emmie Ovalles MD December 20, 2016 11:01
[2016-12-20] MEDS ORDERED: PHARMACY ORDERED LAB ONE (11:45)
[2016-12-20] MEDS ORDERED: IRON SUCROSE 100 MG/5 ML VIAL IV PUSH ONE (12:00)
[2016-12-20] MEDS: FERROUS SULFATE 325 MG (65 MG ELEMENTAL IRON) TAB PO SCH ×2 (13:20→16:12)
[2016-12-20] MEDS: cefTRIAXone INJ 2,000 MG in SODIUM CHLORIDE 0.9% INJ 100 ML IV SCH (16:12)
[2016-12-21] VITALS (7 sets, daily range): BP systolic 95–142; BP diastolic 47–63; PULSE 74–89; RESP 18; TEMP 97.5–98.9; O2SAT 94–96
[2016-12-21] MEDS: CHLORHEXIDINE GLUCONATE 2 % 1 PACK (2 CLOTHS) TOP SCH (04:00)
[2016-12-21] MEDS: HEPARIN SODIUM - SQ 10,000 UNITS/ML VIAL SQ SCH ×2 (04:52→18:10)
[2016-12-21] MEDS: SODIUM CHLOR 0.45% 1000 ML INJ 1,000 ML IV SCH ×2 (08:36→20:50)
[2016-12-21] MEDS: PANTOPRAZOLE SODIUM 40 MG VIAL IV SCH (08:37)
[2016-12-21] MEDS: SODIUM CHLORIDE 0.9% FLUSH 10 ML FLUSH IV FLUSH SCH ×2 (08:37→21:00)
[2016-12-21] MEDS: DOCUSATE SODIUM 100 MG CAP PO SCH ×2 (08:41→23:10)
--- NOTE | 2016-12-21 09:53 | HHI.PR ---
Subjective Subjective Notes no acute issues, tolerating diet, no fevers overnight, denies pain Objective Vitals/I&O Vital Signs Date Time Temp Pulse Resp B/P Pulse Ox O2 Delivery O2 Flow Rate FiO2 12/21/16 08:50 Room Air 12/21/16 08:50 81 12/21/16 08:00 98.0 18 110/56 96 Labs Date/Time Procedure Status Source Growth 12/19/16 06:07 Aerobic Blood Culture - Preliminary Resulted Blood Peripheral NO GROWTH IN 1 DAY 12/19/16 06:07 Anaerobic Blood Culture - Preliminary Resulted Blood Peripheral NO GROWTH IN 1 DAY 12/17/16 10:25 Legionella Antigen - Final Complete Urine Random Urine PRESUMPTIVE NEGATIVE FOR LEGIONELLA P... 12/17/16 10:25 Aerobic Blood Culture - Final Complete Blood Peripheral Staph Sp Coagulase Negative 12/17/16 10:25 Anaerobic Blood Culture - Final Complete Viridans Streptococcus Grp Cardiovascular: Regular Lungs: Clear Abdomen: Non-distended, Non-tender, Other A/P Assessment and Plan r/o acute cholecystitis, bactremia on admission, abnormal lfts on admission, GB wall thickening with sludge, tolerating reg diet, denies pain PLAN f/u labs obtain HIDA c/w abdominal exams Naldo Celeste MD December 21, 2016 09:53
[2016-12-21] MEDS: FERROUS SULFATE 325 MG (65 MG ELEMENTAL IRON) TAB PO SCH ×2 (11:55→18:10)
[2016-12-21 12:03] LABS: ALT (GPT) 87 U/L (12-78); ANION GAP 7 MEQ/L (5-15); AST (GOT) 26 U/L (15-37); BICARBONATE 27.7 MEQ/L (21.0-32.0); BLOOD UREA NITROGEN 9 MG/DL (7-18); CHLORIDE 102 MEQ/L (98-107); GLOMERULAR FILTRATION RATE 94 ML/MIN (>89); POTASSIUM 3.4 MEQ/L (3.5-5.1); SODIUM (NA) 137 MEQ/L (136-145)
[2016-12-21 12:04] LABS: ALKALINE PHOSPHATASE 81 U/L (45-117); TOTAL BILIRUBIN ADULT 0.8 MG/DL (0.2-1.0)
[2016-12-21 12:33] LABS: AUTOMATED NEUTROPHIL # 9.5 TH/MM3 (1.8-7.7); BASOPHIL % 0.2 % (0.0-2.0); EOSINOPHIL # 0.1 TH/MM3 (0-0.4); EOSINOPHIL % 0.4 % (0.0-4.0); LYMPH % 40.5 % (9.0-44.0); LYMPHOCYTE # 7.1 TH/MM3 (1.0-4.8); MEAN CELL VOLUME 80.2 FL (80.0-100.0); MEAN CORPUSCULAR HEMOGLOBIN 25.7 PG (27.0-34.0); MONO % 4.9 % (0.0-8.0); PLATELET COUNT 261 TH/MM3 (150-450); RED BLOOD COUNT 3.86 MIL/MM3 (4.50-5.90); RED CELL DISTRIBUTION WIDTH 16.2 % (11.6-17.2); WHITE BLOOD COUNT 17.6 TH/MM3 (4.0-11.0)
[2016-12-21 12:36] LABS: HEMO FLAGS AUTO DIFF
--- NOTE | 2016-12-21 13:33 | HHI.IDPN ---
Note Infectious Disease Note Patient says he feels okay. No distress. Afebrile. Denies abdominal pain. No SOB. No chills. Going for HIDA scan. ALLERGIES NO KNOWN DRUG ALLERGIES. MEDICATIONS Ceftriaxone. SOCIAL HISTORY The patient denies alcohol, tobacco or illicit drugs. FAMILY HISTORY Noncontributory. OBJECTIVE: Vital Signs Date Time Temp Pulse Resp B/P Pulse Ox O2 Delivery O2 Flow Rate FiO2 12/21/16 12:00 98.1 80 18 97/53 94 12/21/16 08:50 Room Air 12/21/16 08:50 81 12/21/16 08:00 98.0 81 18 110/56 96 12/21/16 04:00 98.9 89 18 131/63 96 12/21/16 00:00 97.5 82 18 132/60 95 12/21/16 00:00 Room Air 12/20/16 20:00 Room Air 12/20/16 20:00 98.4 88 18 132/65 95 12/20/16 20:00 83 12/20/16 16:00 97.9 80 20 133/68 100 12/20/16 12/20/16 12/21/16 15:00 23:00 07:00 Intake Total 1194 ml 937 ml 100 ml Output Total 800 ml Balance 1194 ml 937 ml -700 ml Intake Oral 240 ml 100 ml IV Total 1194 ml 697 ml Output Urine Total 800 ml # Voids 1 1 # Bowel Movements 1 1 Laboratory Tests Test 12/21/16 11:10 White Blood Count 17.6 TH/MM3 Red Blood Count 3.86 MIL/MM3 Hemoglobin 9.9 GM/DL Hematocrit 31.0 % Mean Corpuscular Volume 80.2 FL Mean Corpuscular Hemoglobin 25.7 PG Mean Corpuscular Hemoglobin 32.0 % Concent Red Cell Distribution Width 16.2 % Platelet Count 261 TH/MM3 Mean Platelet Volume 8.5 FL Neutrophils (%) (Auto) 54.0 % Lymphocytes (%) (Auto) 40.5 % Monocytes (%) (Auto) 4.9 % Eosinophils (%) (Auto) 0.4 % Basophils (%) (Auto) 0.2 % Neutrophils # (Auto) 9.5 TH/MM3 Lymphocytes # (Auto) 7.1 TH/MM3 Monocytes # (Auto) 0.9 TH/MM3 Eosinophils # (Auto) 0.1 TH/MM3 Basophils # (Auto) 0.0 TH/MM3 CBC Comment AUTO DIFF Laboratory Tests Test 12/21/16 11:10 Sodium Level 137 MEQ/L Potassium Level 3.4 MEQ/L Chloride Level 102 MEQ/L Carbon Dioxide Level 27.7 MEQ/L Anion Gap 7 MEQ/L Blood Urea Nitrogen 9 MG/DL Creatinine 0.79 MG/DL Estimat Glomerular Filtration 94 ML/MIN Rate Random Glucose 212 MG/DL Calcium Level 8.1 MG/DL Total Bilirubin 0.8 MG/DL Aspartate Amino Transf 26 U/L (AST/SGOT) Alanine Aminotransferase 87 U/L (ALT/SGPT) Alkaline Phosphatase 81 U/L Total Protein 6.1 GM/DL Albumin 2.5 GM/DL Microbiology Date/Time Procedure Status Source Growth 12/19/16 05:58 Aerobic Blood Culture - Preliminary Resulted Blood Peripheral NO GROWTH IN 2 DAYS 12/19/16 05:58 Anaerobic Blood Culture - Preliminary Resulted Blood Peripheral NO GROWTH IN 2 DAYS 12/19/16 06:07 Aerobic Blood Culture - Preliminary Resulted Blood Peripheral NO GROWTH IN 2 DAYS 12/19/16 06:07 Anaerobic Blood Culture - Preliminary Resulted Blood Peripheral NO GROWTH IN 2 DAYS PHYSICAL EXAMINATION IN GENERAL: No acute distress. Awake and alert and oriented. HEAD, EYES, EARS, NOSE, AND THROAT: No icterus. Oropharynx moist mucosa without lesions. NECK: Supple. No adenopathy. LUNGS: Clear breath sounds. HEART: Regular S1-S2 without Audible murmurs, rubs or gallops. ABDOMEN: Bowel sounds present, soft, no tenderness appreciated. No masses palpable. EXTREMITIES: No clubbing or cyanosis or edema. SKIN: No rash. NEUROLOGIC: No gross focal findings. PSYCHIATRIC: The patient calm and cooperative. IMPRESSION 1. Sepsis due to strep species. Repeat blood cultures are negative. 2. Probable gallbladder disease. Patient with elevated bilirubin in addition to elevated liver function tests and abnormal CT scan findings of the abdomen revealing probable liver mass versus gallbladder disease. 3. Leukocytosis secondary to infection. WBC fluctuating. Now higher. 4. Altered mental status secondary to infection. Improved. RECOMMENDATIONS 1. Continue ceftriaxone. 2. Monitor blood cultures. 3. Monitor the WBC. 4. Follow HIDA scan. Sterling Juarez MD December 21, 2016 13:33 No masses palpable. EXTREMITIES: No clubbing or cyanosis or edema. SKIN: No rash. NEUROLOGIC: No gross focal findings. PSYCHIATRIC: The patient calm and cooperative. IMPRESSION 1. Sepsis due to strep species. Repeat blood cultures are negative. 2. Probable gallbladder disease. Patient with elevated bilirubin in addition to elevated liver function tests and abnormal CT scan findings of the abdomen revealing probable liver mass versus gallbladder disease. 3. Leukocytosis secondary to infection. WBC fluctuating. Now higher. 4. Altered mental status secondary to infection. Improved. RECOMMENDATIONS 1. Continue ceftriaxone. 2. Monitor blood cultures. 3. Monitor the WBC. 4. Follow HIDA scan. Sterling Juarez MD December 21, 2016 13:33
[2016-12-21 13:47] LABS: BANDS 2 % (0-6); NEUTROPHIL # MANUAL DIFF 7.9 TH/MM3 (1.8-7.7); POLYS (SEG NEUTROPHILS) 43 % (16-70); WBC DIFF SAMPLE 100
[2016-12-21 13:51] LABS: PLATELET ESTIMATE SMEAR NORMAL (NORMAL); SMUDGE CELLS PRESENT PRESENT
[2016-12-21 13:53] LABS: ACANTHOCYTES OCC (NORMAL); PLATELET MORPHOLOGY NORMAL (NORMAL)
[2016-12-21 13:54] LABS: SCAN/DIFF FINAL DIFF MANUAL
--- NOTE | 2016-12-21 14:44 | HHI.GIFU ---
Subjective Remarks pt off floor for procedure Objective Vitals I&O Vital Signs Date Time Temp Pulse Resp B/P Pulse Ox O2 Delivery O2 Flow Rate FiO2 12/21/16 12:00 98.1 80 18 97/53 94 12/21/16 08:50 Room Air 12/21/16 08:50 81 12/21/16 08:00 98.0 81 18 110/56 96 12/21/16 04:00 98.9 89 18 131/63 96 12/21/16 00:00 97.5 82 18 132/60 95 12/21/16 00:00 Room Air 12/20/16 20:00 Room Air 12/20/16 20:00 98.4 88 18 132/65 95 12/20/16 20:00 83 12/20/16 16:00 97.9 80 20 133/68 100 I/O 12/20/16 12/20/16 12/20/16 12/21/16 12/21/16 12/21/16 07:00 15:00 23:00 07:00 15:00 23:00 Intake Total 0 ml 1194 ml 937 ml 100 ml Output Total 800 ml Balance 0 ml 1194 ml 937 ml -700 ml Intake Oral 0 ml 240 ml 100 ml IV Total 1194 ml 697 ml Output Urine Total 800 ml # Voids 1 1 1 # Bowel Movements 1 1 1 Laboratory Laboratory Tests Test 12/21/16 11:10 White Blood Count 17.6 Red Blood Count 3.86 Hemoglobin 9.9 Hematocrit 31.0 Mean Corpuscular Volume 80.2 Mean Corpuscular Hemoglobin 25.7 Mean Corpuscular Hemoglobin 32.0 Concent Red Cell Distribution Width 16.2 Platelet Count 261 Mean Platelet Volume 8.5 Neutrophils (%) (Auto) 54.0 Lymphocytes (%) (Auto) 40.5 Monocytes (%) (Auto) 4.9 Eosinophils (%) (Auto) 0.4 Basophils (%) (Auto) 0.2 Neutrophils # (Auto) 9.5 Lymphocytes # (Auto) 7.1 Monocytes # (Auto) 0.9 Eosinophils # (Auto) 0.1 Basophils # (Auto) 0.0 CBC Comment AUTO DIFF Differential Total Cells 100 Counted Neutrophils % (Manual) 43 Band Neutrophils % 2 Lymphocytes % 52 Monocytes % 3 Neutrophils # (Manual) 7.9 Differential Comment FINAL DIFF MANUAL Smudge Cells PRESENT Platelet Estimate NORMAL Platelet Morphology Comment NORMAL Acanthocytes OCC Sodium Level 137 Potassium Level 3.4 Chloride Level 102 Carbon Dioxide Level 27.7 Anion Gap 7 Blood Urea Nitrogen 9 Creatinine 0.79 Estimat Glomerular Filtration 94 Rate Random Glucose 212 Calcium Level 8.1 Total Bilirubin 0.8 Aspartate Amino Transf 26 (AST/SGOT) Alanine Aminotransferase 87 (ALT/SGPT) Alkaline Phosphatase 81 Total Protein 6.1 Albumin 2.5 Date/Time Procedure Status Source Growth 12/19/16 06:07 Aerobic Blood Culture - Preliminary Resulted Blood Peripheral NO GROWTH IN 2 DAYS 12/19/16 06:07 Anaerobic Blood Culture - Preliminary Resulted Blood Peripheral NO GROWTH IN 2 DAYS 12/17/16 10:25 Legionella Antigen - Final Complete Urine Random Urine PRESUMPTIVE NEGATIVE FOR LEGIONELLA P... 12/17/16 10:25 Aerobic Blood Culture - Final Complete Blood Peripheral Staph Sp Coagulase Negative 12/17/16 10:25 Anaerobic Blood Culture - Final Complete Viridans Streptococcus Grp Imaging Last Impressions Abdomen MRI 12/19/16 0000 Signed Impressions: Service Date/Time: Monday, December 19, 2016 15:02 - CONCLUSION: 1. No discrete abnormality identified in the liver. 2. Gallbladder wall thickening to 6 mm with some mural enhancement. A mild or low grade cholecystitis could give this appearance. 3. Small bilateral pleural effusions. Jorge Luis White MD Gall Bladder Ultrasound 12/18/16 0000 Signed Impressions: Service Date/Time: Sunday, December 18, 2016 08:40 - CONCLUSION: 1. Vague area of heterogeneity in the area of concern within the central portions of the right lobe of the liver which correlates to the area on the prior CT. The exact etiology is uncertain. I cannot completely exclude a mass. MRI is suggested to further evaluate. 2. Chronic cholecystitis. Details given above. Eder Vitale Jr., MD Head CT 12/17/16 1010 Signed Impressions: Service Date/Time: December 11:04 - CONCLUSION: Normal examination. Eder Vitale Jr., MD Chest X-Ray 12/17/16 1010 Signed Impressions: Service Date/Time: December 10:34 - CONCLUSION: Underinflated examination without an acute finding identified. Cardiac silhouette size is at the upper limits for normal. Bunny Dangelo MD Cervical Spine CT 12/17/16 0000 Signed Impressions: Service Date/Time: December 11:04 - CONCLUSION: 1. No fracture or dislocation. 2. Degenerative changes as detailed above. Eder Vitale Jr., MD Abdomen/Pelvis CT 12/17/16 0000 Signed Impressions: Service Date/Time: December 11:14 - CONCLUSION: 1. No definite acute finding is identified. However, the central liver appears somewhat heterogeneous and it is not clear if this is related to a liver mass, abnormal gallbladder, or artifact. When the patient's condition permits suggest contrast enhanced CT or MRI of the liver. 2. There is a single mildly enlarged aortocaval lymph node. No other lymphadenopathy is present. 3. Nonacute findings include moderate atherosclerotic disease and prostatomegaly. Bunny Dangelo MD Physical Exam Pt off floor Assessment and Plan Plan - Elevated LFTs possible liver mass vs gallbladder dz- LFTs improving, multifactorial possible shocked liver vs liver mass or gallbladder today wbc 17.6, AST 26 ALT87, ALP 81, bili 2.4, Toxicology negative .AFP 1.1, CA 19-9 4.7, CEA 2.6. MRabd 12-20-16 --->1. No discrete abnormality identified in the liver. 2. Gallbladder wall thickening to 6 mm with some mural enhancement. A mild or low grade cholecystitis could give this appearance. 3. Small bilateral pleural effusions. US on (12/18/16) Vague area of heterogeneity in the area of concern within the central portions of the right lobe of the liver which correlates to the area on the prior CT. The exact etiology is uncertain. I cannot completely exclude a mass. MRI is suggested to further evaluate. 2. Chronic cholecystitis. Details given above. Non contrasted Ct on (12/17/16) 1. No definite acute finding is identified. However, the central liver appears somewhat heterogeneous and it is not clear if this is related to a liver mass, abnormal gallbladder, or artifact. When the patient's condition permits suggest contrast enhanced CT or MRI of the liver. 2. There is a single mildly enlarged aortocaval lymph node. No other lymphadenopathy is present. 3. Nonacute findings include moderate atherosclerotic disease and prostatomegaly. Patient denies previous hx of liver disease, denies alcohol. He denies herbs, Tylenol or recent abx. HIDA pending - Sepsis due to to strep species- Currently on Ceftriaxone managed by ID. - leukocytosis- improved - AMS- improved head Ct negative - HTN per attending Plan: - TONI - await HIDA - immunology/serology labs pending - Monitor labs - Further recommendation to follow pending results above - Supportive care - Patient seen and examined by dr. Roy and myself and this note is written on her behalf. Tri Smith December 21, 2016 14:44
[2016-12-21 14:47] LABS: ANA SCREEN NEG (NEG)
--- NOTE | 2016-12-21 15:04 | HHI.PR ---
Subjective Remarks No abdominal pain. Denies fever or chills. He is feeling improving. No n/v/d/c. Plan for HIDA scan. Objective Vitals Vital Signs Date Time Temp Pulse Resp B/P Pulse Ox O2 Delivery O2 Flow Rate FiO2 12/21/16 12:00 98.1 80 18 97/53 94 12/21/16 08:50 Room Air 12/21/16 08:50 81 12/21/16 08:00 98.0 81 18 110/56 96 12/21/16 04:00 98.9 89 18 131/63 96 12/21/16 00:00 97.5 82 18 132/60 95 12/21/16 00:00 Room Air 12/20/16 20:00 Room Air 12/20/16 20:00 98.4 88 18 132/65 95 12/20/16 20:00 83 12/20/16 16:00 97.9 80 20 133/68 100 I/O 12/20/16 12/20/16 12/20/16 12/21/16 12/21/16 12/21/16 07:00 15:00 23:00 07:00 15:00 23:00 Intake Total 0 ml 1194 ml 937 ml 100 ml Output Total 800 ml Balance 0 ml 1194 ml 937 ml -700 ml Intake Oral 0 ml 240 ml 100 ml IV Total 1194 ml 697 ml Output Urine Total 800 ml # Voids 1 1 1 # Bowel Movements 1 1 1 Result Diagram: 12/21/16 1110 12/21/16 1110 Imaging Last Impressions Hepatobiliary Scan Nuclear Medicine 12/21/16 0000 Signed Impressions: Service Date/Time: Wednesday, December 21, 2016 12:56 - CONCLUSION: Nonvisualization of the gallbladder 2 hours. Findings would be consistent with either acute or chronic cholecystitis. The MRI is more suggestive of an acute cholecystitis. Andres Sprague MD FACR Abdomen MRI 12/19/16 0000 Signed Impressions: Service Date/Time: Monday, December 19, 2016 15:02 - CONCLUSION: 1. No discrete abnormality identified in the liver. 2. Gallbladder wall thickening to 6 mm with some mural enhancement. A mild or low grade cholecystitis could give this appearance. 3. Small bilateral pleural effusions. Jorge Luis White MD Gall Bladder Ultrasound 12/18/16 0000 Signed Impressions: Service Date/Time: Sunday, December 18, 2016 08:40 - CONCLUSION: 1. Vague area of heterogeneity in the area of concern within the central portions of the right lobe of the liver which correlates to the area on the prior CT. The exact etiology is uncertain. I cannot completely exclude a mass. MRI is suggested to further evaluate. 2. Chronic cholecystitis. Details given above. Eder Vitale Jr., MD Head CT 12/17/16 1010 Signed Impressions: Service Date/Time: December 11:04 - CONCLUSION: Normal examination. Eder Vitale Jr., MD Chest X-Ray 12/17/16 1010 Signed Impressions: Service Date/Time: December 10:34 - CONCLUSION: Underinflated examination without an acute finding identified. Cardiac silhouette size is at the upper limits for normal. Bunny Dangelo MD Cervical Spine CT 12/17/16 0000 Signed Impressions: Service Date/Time: December 11:04 - CONCLUSION: 1. No fracture or dislocation. 2. Degenerative changes as detailed above. Eder Vitale Jr., MD Abdomen/Pelvis CT 12/17/16 0000 Signed Impressions: Service Date/Time: December 11:14 - CONCLUSION: 1. No definite acute finding is identified. However, the central liver appears somewhat heterogeneous and it is not clear if this is related to a liver mass, abnormal gallbladder, or artifact. When the patient's condition permits suggest contrast enhanced CT or MRI of the liver. 2. There is a single mildly enlarged aortocaval lymph node. No other lymphadenopathy is present. 3. Nonacute findings include moderate atherosclerotic disease and prostatomegaly. Bunny Dangelo MD Objective Remarks GENERAL: Elderly appearing gentleman, in no apparent distress, appropriately conversant SKIN: Warm and dry. HEAD: Atraumatic. Normocephalic. EYES: Pupils equal and round, 3 mm breath. No scleral icterus. No injection or drainage. ENT: No nasal bleeding or discharge. Mucous membranes pink and moist. NECK: Trachea midline. No JVD. CARDIOVASCULAR: Normal rate, regular rhythm. RESPIRATORY: No accessory muscle use. Clear to auscultation. Breath sounds equal bilaterally. GASTROINTESTINAL: Abdomen soft, non-tender, nondistended. No guarding. MUSCULOSKELETAL: Extremities without clubbing, cyanosis, or edema. No obvious deformities. NEUROLOGICAL: Awake and alert. RASS 0. No gross focal/sensory deficits. Follows commands in all 4 extremities. A/P Assessment and Plan Heme/ID: Sepsis Bacteremia GPC (3/4). Repeat blood cx 12/19/16 are NTD Patient received Vancomycin and Zosyn in the ED Monitor serial lactate Monitor and follow-up blood cultures Empiric antibiotics initiated vancomycin and cefepime. Consult ID , seen by Dr Bo. DC cefepime and start rocephine, cont vanco. ID following. Tylenol for temperature greater than 101 5/for Legionellanegative Poss cholecystitis. Gen surg consulted. Plan for HIDA scan. Iron deficiency anemia./ Start iron supplement. Received venofer IV. Neurologic: Metabolic encephalopathy secondary to sepsis. Resolved, back to baseline. Avoid sedatives medications Checks per ICU protocol Maintain sleep hygiene 12/17 CT brain- no abnormality Respiratory: No acute issues 10 O2 sat greater than 92%. O2 14 L/m nasal cannula if needed Maintain head of bed greater than 30 Cardiovascular: 12/17 diffuse EKG changes 12/17 echo-Ejection fraction 5560 percent. No regional wall motion abnormalities BNP 156, continue to monitor Serial troponin neg Renal: Renal insufficiency No Ward -- Strict I/Os FEN/GI: Received 2 L of normal saline on admission (ED) Continue normal saline at 100 cc/hour Heart healthy diet Monitor BMP CT abdomen and pelvis-recommendation for MRI CT repeat with contrast, abnormal liver contour Bowel regimen Follow-up CMP T Bili, alk phosphatase noted elevated and GI was consulted. Trend levels improving. Consult GI , appreciate recommendations. work up pending, tumor markers so far negative Endocrine: Glucose monitoring per ICU protocol -- SSI Prophylaxis: GI Prophylaxis --Protonix DVT Prophylaxis-- SCDs Heparin SQ DC ward, monitor voiding Code Status Full Discussed Condition With Patient, nurse Emmie Ovalles MD December 21, 2016 15:04
[2016-12-21] MEDS ORDERED: POTASSIUM CHLORIDE 20 MEQ CONTROLLED RELEASE TAB PO ONE (15:15)
--- NOTE | 2016-12-21 15:28 | RADRPT ---
EXAM DATE/TIME: 12/21/2016 12:56 This report includes an Addendum and supersedes previous reports for this exam. [facility] COMPARISON: CT ABDOMEN & PELVIS W/O CONTRAST, December 17, 2016, 11:14. MRI ABDOMEN W & W/O CONTRAST, December 19, 2016, 1 5:02. INDICATIONS : Elevated LFT's. Gallbladder wall thickening with sludge. DOSE: 4.3 mCi Tc99m Mebrofenin IV MEDICAL HISTORY : None SURGICAL HISTORY : None. ENCOUNTER: Initial ACUITY: 3 days PAIN SCALE: 0/10 LOCATION: Right upper quadrant TECHNIQUE: Following the intravenous administration of radiotracer, dynamic sequential images were performed wit h continuous acquisition. FINDINGS: There is prompt extraction of radiotracer with activity seen in the common duct and small bowel withi n 10 minutes. The gallbladder is not visualized at 2 hours. CONCLUSION: Nonvisualization of the gallbladder 2 hours. Findings would be consistent with either acute or chron ic cholecystitis. The MRI is more suggestive of an acute cholecystitis. Andres Sprague MD FACR on December 21, 2016 at 15:24 Board Certified Radiologist. This report was verified electronically. ADDENDUM: 20 hour delayed images were performed. Nonvisualization of the gallbladder again noted. Findings are again suspicious for acute cholecystitis in the proper clinical setting. Ishmael Nixon MD on December 22, 2016 at 9:21 Board Certified Radiologist. This report was verified electronically.
[2016-12-21] MEDS: cefTRIAXone INJ 2,000 MG in SODIUM CHLORIDE 0.9% INJ 100 ML IV SCH (18:11)
[2016-12-22] VITALS: BP 128/61; PULSE 72; RESP 18; TEMP 97.6; O2SAT 97
[2016-12-22] MEDS: HEPARIN SODIUM - SQ 10,000 UNITS/ML VIAL SQ SCH (02:47)
[2016-12-22 04:00] VITALS: BP 115/59; PULSE 75; RESP 18; TEMP 97.5; O2SAT 96
[2016-12-22] MEDS: CHLORHEXIDINE GLUCONATE 2 % 1 PACK (2 CLOTHS) TOP SCH (04:00)
[2016-12-22 08:00] VITALS: BP 134/63; PULSE 72; RESP 18; TEMP 97.9; O2SAT 97
[2016-12-22] MEDS: PANTOPRAZOLE SODIUM 40 MG VIAL IV SCH (08:09)
[2016-12-22] MEDS: SODIUM CHLORIDE 0.9% FLUSH 10 ML FLUSH IV FLUSH SCH ×2 (08:09→21:00)
[2016-12-22] MEDS: DOCUSATE SODIUM 100 MG CAP PO SCH ×2 (08:09→21:00)
[2016-12-22] MEDS: SODIUM CHLOR 0.45% 1000 ML INJ 1,000 ML IV SCH ×2 (08:09→21:28)
--- NOTE | 2016-12-22 10:41 | HHI.PR ---
Subjective Subjective Notes no acute issues, wbc increased today +HIDA Objective Vitals/I&O Vital Signs Date Time Temp Pulse Resp B/P Pulse Ox O2 Delivery O2 Flow Rate FiO2 12/22/16 04:00 97.5 75 18 115/59 96 12/21/16 20:00 Room Air Labs Laboratory Tests Test 12/21/16 11:10 White Blood Count 17.6 Red Blood Count 3.86 Hemoglobin 9.9 Hematocrit 31.0 Mean Corpuscular Volume 80.2 Mean Corpuscular Hemoglobin 25.7 Mean Corpuscular Hemoglobin 32.0 Concent Red Cell Distribution Width 16.2 Platelet Count 261 Mean Platelet Volume 8.5 Neutrophils (%) (Auto) 54.0 Lymphocytes (%) (Auto) 40.5 Monocytes (%) (Auto) 4.9 Eosinophils (%) (Auto) 0.4 Basophils (%) (Auto) 0.2 Neutrophils # (Auto) 9.5 Lymphocytes # (Auto) 7.1 Monocytes # (Auto) 0.9 Eosinophils # (Auto) 0.1 Basophils # (Auto) 0.0 CBC Comment AUTO DIFF Differential Total Cells 100 Counted Neutrophils % (Manual) 43 Band Neutrophils % 2 Lymphocytes % 52 Monocytes % 3 Neutrophils # (Manual) 7.9 Differential Comment FINAL DIFF MANUAL Smudge Cells PRESENT Platelet Estimate NORMAL Platelet Morphology Comment NORMAL Acanthocytes OCC Sodium Level 137 Potassium Level 3.4 Chloride Level 102 Carbon Dioxide Level 27.7 Anion Gap 7 Blood Urea Nitrogen 9 Creatinine 0.79 Estimat Glomerular Filtration 94 Rate Random Glucose 212 Calcium Level 8.1 Total Bilirubin 0.8 Aspartate Amino Transf 26 (AST/SGOT) Alanine Aminotransferase 87 (ALT/SGPT) Alkaline Phosphatase 81 Total Protein 6.1 Albumin 2.5 Date/Time Procedure Status Source Growth 12/19/16 06:07 Aerobic Blood Culture - Preliminary Resulted Blood Peripheral NO GROWTH IN 2 DAYS 12/19/16 06:07 Anaerobic Blood Culture - Preliminary Resulted Blood Peripheral NO GROWTH IN 2 DAYS Lungs: Clear Abdomen: Non-distended, Non-tender A/P Assessment and Plan r/o acute cholecystitis, bactremia on admission, abnormal lfts on admission, GB wall thickening with sludge, tolerating reg diet, denies pain PLAN wbc increased HIDA+ I discussed with pt for laparoscopic cholecystectomy risks, benefits, alternative. Pt is also at bedside pt currently refusing cholecystectomy, He states he does not want surgery. Consider cholecystostomy tube if symptoms progress and pt still not wanting surgery c/w abdominal exams, monitor labs Naldo Celeste MD December 22, 2016 10:40
[2016-12-22] MEDS: FERROUS SULFATE 325 MG (65 MG ELEMENTAL IRON) TAB PO SCH ×2 (11:17→16:58)
[2016-12-22 12:00] VITALS: BP 112/55; PULSE 70; RESP 18; TEMP 98.5; O2SAT 97
--- NOTE | 2016-12-22 12:00 | HHI.IDPN ---
Note Infectious Disease Note Patient says he feels okay. No distress. Afebrile. Denies abdominal pain. No SOB. No chills. Reported to be refusing surgery. Patient presented to the hospital with fever after he was found down on his at home. The patient reportedly was covered in urine and feces. He was noted to have altered mental status on presentation. ALLERGIES NO KNOWN DRUG ALLERGIES. MEDICATIONS Ceftriaxone. OBJECTIVE: Vital Signs Date Time Temp Pulse Resp B/P Pulse Ox O2 Delivery O2 Flow Rate FiO2 12/22/16 04:00 97.5 75 18 115/59 96 12/22/16 00:00 97.6 72 18 128/61 97 12/21/16 20:00 98.4 78 18 95/47 95 12/21/16 20:00 74 12/21/16 20:00 Room Air 12/21/16 16:00 98.5 80 18 142/63 94 12/21/16 12:00 98.1 80 18 97/53 94 12/21/16 12/21/16 12/22/16 15:00 23:00 07:00 Intake Total 360 ml 480 ml 120 ml Output Total 600 ml 450 ml Balance 360 ml -120 ml -330 ml Intake Oral 360 ml 480 ml 120 ml Output Urine Total 600 ml 450 ml # Voids 3 # Bowel Movements 0 0 0 Laboratory Tests Test 12/21/16 11:10 White Blood Count 17.6 TH/MM3 Red Blood Count 3.86 MIL/MM3 Hemoglobin 9.9 GM/DL Hematocrit 31.0 % Mean Corpuscular Volume 80.2 FL Mean Corpuscular Hemoglobin 25.7 PG Mean Corpuscular Hemoglobin 32.0 % Concent Red Cell Distribution Width 16.2 % Platelet Count 261 TH/MM3 Mean Platelet Volume 8.5 FL Neutrophils (%) (Auto) 54.0 % Lymphocytes (%) (Auto) 40.5 % Monocytes (%) (Auto) 4.9 % Eosinophils (%) (Auto) 0.4 % Basophils (%) (Auto) 0.2 % Neutrophils # (Auto) 9.5 TH/MM3 Lymphocytes # (Auto) 7.1 TH/MM3 Monocytes # (Auto) 0.9 TH/MM3 Eosinophils # (Auto) 0.1 TH/MM3 Basophils # (Auto) 0.0 TH/MM3 CBC Comment AUTO DIFF Differential Total Cells 100 Counted Neutrophils % (Manual) 43 % Band Neutrophils % 2 % Lymphocytes % 52 % Monocytes % 3 % Neutrophils # (Manual) 7.9 TH/MM3 Differential Comment FINAL DIFF MANUAL Smudge Cells PRESENT Platelet Estimate NORMAL Platelet Morphology Comment NORMAL Acanthocytes OCC Laboratory Tests Test 12/21/16 11:10 Sodium Level 137 MEQ/L Potassium Level 3.4 MEQ/L Chloride Level 102 MEQ/L Carbon Dioxide Level 27.7 MEQ/L Anion Gap 7 MEQ/L Blood Urea Nitrogen 9 MG/DL Creatinine 0.79 MG/DL Estimat Glomerular Filtration 94 ML/MIN Rate Random Glucose 212 MG/DL Calcium Level 8.1 MG/DL Total Bilirubin 0.8 MG/DL Aspartate Amino Transf 26 U/L (AST/SGOT) Alanine Aminotransferase 87 U/L (ALT/SGPT) Alkaline Phosphatase 81 U/L Total Protein 6.1 GM/DL Albumin 2.5 GM/DL PHYSICAL EXAMINATION GENERAL: No acute distress. Awake and alert and oriented. HEENT: No icterus. Oropharynx: moist mucosa without lesions. NECK: Supple. No adenopathy. LUNGS: Clear. HEART: Regular S1-S2 without Audible murmurs, rubs or gallops. ABDOMEN: Bowel sounds present, soft, no tenderness. No masses palpable. EXTREMITIES: No clubbing or cyanosis or edema. SKIN: No rash. NEUROLOGIC: No gross focal findings. PSYCHIATRIC: Calm and cooperative. IMPRESSION 1. Sepsis due to strep species. Repeat blood cultures are negative. 2. Probable gallbladder disease. Patient with elevated bilirubin in addition to elevated liver function tests and abnormal CT scan findings of the abdomen revealing probable liver mass versus gallbladder disease. 3. Leukocytosis secondary to infection. WBC fluctuating. Now higher. 4. Altered mental status secondary to infection. Improved. RECOMMENDATIONS 1. Continue ceftriaxone IV until 12/28. Same dose. 2. Monitor blood cultures. 3. Monitor the WBC. Pending improvement in the WBC, arrangement for outpatient antibiotics can be made from ID standpoint. Sterling Juarez MD December 22, 2016 12:00
--- NOTE | 2016-12-22 12:05 | HHI.PR ---
Subjective Remarks Patient says he feels much better today. Denies abdominal pain. No fever or chills. No n/v/d/c. HIDA positive and refusing rachell also at bedside. Objective Vitals Vital Signs Date Time Temp Pulse Resp B/P Pulse Ox O2 Delivery O2 Flow Rate FiO2 12/22/16 04:00 97.5 75 18 115/59 96 12/22/16 00:00 97.6 72 18 128/61 97 12/21/16 20:00 98.4 78 18 95/47 95 12/21/16 20:00 74 12/21/16 20:00 Room Air 12/21/16 16:00 98.5 80 18 142/63 94 I/O 12/21/16 12/21/16 12/21/16 12/22/16 12/22/16 12/22/16 07:00 15:00 23:00 07:00 15:00 23:00 Intake Total 100 ml 360 ml 480 ml 120 ml Output Total 800 ml 600 ml 450 ml Balance -700 ml 360 ml -120 ml -330 ml Intake Oral 100 ml 360 ml 480 ml 120 ml Output Urine Total 800 ml 600 ml 450 ml # Voids 1 3 # Bowel Movements 1 0 0 0 Result Diagram: 12/21/16 1110 12/21/16 1110 Imaging Last Impressions Hepatobiliary Scan Nuclear Medicine 12/21/16 0000 Signed Impressions: Service Date/Time: Wednesday, December 21, 2016 12:56 - CONCLUSION: Nonvisualization of the gallbladder 2 hours. Findings would be consistent with either acute or chronic cholecystitis. The MRI is more suggestive of an acute cholecystitis. Andres Sprague MD FACRADDENDUM: 20 hour delayed images were performed. Nonvisualization of the gallbladder again noted. Findings are again suspicious for acute cholecystitis in the proper clinical setting. Ishmael Nixon MD Abdomen MRI 12/19/16 0000 Signed Impressions: Service Date/Time: Monday, December 19, 2016 15:02 - CONCLUSION: 1. No discrete abnormality identified in the liver. 2. Gallbladder wall thickening to 6 mm with some mural enhancement. A mild or low grade cholecystitis could give this appearance. 3. Small bilateral pleural effusions. Jorge Luis White MD Gall Bladder Ultrasound 12/18/16 0000 Signed Impressions: Service Date/Time: Sunday, December 18, 2016 08:40 - CONCLUSION: 1. Vague area of heterogeneity in the area of concern within the central portions of the right lobe of the liver which correlates to the area on the prior CT. The exact etiology is uncertain. I cannot completely exclude a mass. MRI is suggested to further evaluate. 2. Chronic cholecystitis. Details given above. Eder Vitale Jr., MD Head CT 12/17/16 1010 Signed Impressions: Service Date/Time: December 11:04 - CONCLUSION: Normal examination. Eder Vitale Jr., MD Chest X-Ray 12/17/16 1010 Signed Impressions: Service Date/Time: December 10:34 - CONCLUSION: Underinflated examination without an acute finding identified. Cardiac silhouette size is at the upper limits for normal. Bunny Dangelo MD Cervical Spine CT 12/17/16 0000 Signed Impressions: Service Date/Time: December 11:04 - CONCLUSION: 1. No fracture or dislocation. 2. Degenerative changes as detailed above. Eder Vitale Jr., MD Abdomen/Pelvis CT 12/17/16 0000 Signed Impressions: Service Date/Time: December 11:14 - CONCLUSION: 1. No definite acute finding is identified. However, the central liver appears somewhat heterogeneous and it is not clear if this is related to a liver mass, abnormal gallbladder, or artifact. When the patient's condition permits suggest contrast enhanced CT or MRI of the liver. 2. There is a single mildly enlarged aortocaval lymph node. No other lymphadenopathy is present. 3. Nonacute findings include moderate atherosclerotic disease and prostatomegaly. Bunny Dangelo MD Objective Remarks GENERAL: Elderly appearing gentleman, in no apparent distress, appropriately conversant SKIN: Warm and dry. HEAD: Atraumatic. Normocephalic. EYES: Pupils equal and round, 3 mm breath. No scleral icterus. No injection or drainage. ENT: No nasal bleeding or discharge. Mucous membranes pink and moist. NECK: Trachea midline. No JVD. CARDIOVASCULAR: Normal rate, regular rhythm. RESPIRATORY: No accessory muscle use. Clear to auscultation. Breath sounds equal bilaterally. GASTROINTESTINAL: Abdomen soft, non-tender, nondistended. No guarding. MUSCULOSKELETAL: Extremities without clubbing, cyanosis, or edema. No obvious deformities. NEUROLOGICAL: Awake and alert. RASS 0. No gross focal/sensory deficits. Follows commands in all 4 extremities. A/P Assessment and Plan Heme/ID: Sepsis Bacteremia GPC (3/). Repeat blood cx 12/19/16 are NTD Patient received Vancomycin and Zosyn in the ED Monitor serial lactate Monitor and follow-up blood cultures Empiric antibiotics initiated vancomycin and cefepime. Consult ID , seen by Dr Bo. DC cefepime and start rocephine, cont vanco. ID following. Tylenol for temperature greater than 101 5/for Legionellanegative Acute Cholecystitis. Gen surg consulted. HIDA scan positive. Gen surgery following Dr doran appreciate recommendations. Patient refusing cholecystectomy. He states he does not want surgery. Consider cholecystostomy tube if symptoms progress and pt still not wanting surgery. c/w abdominal exams, monitor labs Iron deficiency anemia./ Start iron supplement. Received venofer IV. Neurologic: Metabolic encephalopathy secondary to sepsis. Resolved, back to baseline. Avoid sedatives medications Checks per ICU protocol Maintain sleep hygiene 12/17 CT brain- no abnormality Respiratory: No acute issues 10 O2 sat greater than 92%. O2 14 L/m nasal cannula if needed Maintain head of bed greater than 30 Cardiovascular: 12/17 diffuse EKG changes 12/17 echo-Ejection fraction 5560 percent. No regional wall motion abnormalities BNP 156, continue to monitor Serial troponin neg Renal: Renal insufficiency No Ward -- Strict I/Os FEN/GI: Received 2 L of normal saline on admission (ED) Continue normal saline at 100 cc/hour Heart healthy diet Monitor BMP CT abdomen and pelvis-recommendation for MRI CT repeat with contrast, abnormal liver contour Bowel regimen Follow-up CMP T Bili, alk phosphatase noted elevated and GI was consulted. Trend levels, improving. Patient has acute rachell Consult GI , appreciate recommendations. work up pending, tumor markers so far negative Endocrine: Glucose monitoring per ICU protocol -- SSI Prophylaxis: GI Prophylaxis --Protonix DVT Prophylaxis-- SCDs Heparin SQ DC ward, monitor voiding Code Status Full Discussed Condition With Patient, nurse, at bedside. Emmie Ovalles MD December 22, 2016 12:05
--- NOTE | 2016-12-22 13:14 | MB ---
cc: HWOARD ALARCON MD DATE OF CONSULTATION 12/20/2016. REASON FOR CONSULTATION Rule out cholecystitis, abnormal LFTs. HISTORY OF PRESENT ILLNESS The patient is an 81-year-old male who presented to the emergency department after being found down. He was noted to be covered in urine and feces by his . He had altered mental status on presentation and concern was Strep sepsis. He was placed on antibiotics and ID is currently managing this. The patient did have further workup including laboratory values showing a WBC of 16.7. T-bili of 2.4, AST 697, ALT 501, alk phos 155, lipase of 158. He had further imaging studies including CT of the head which was normal and CT of the abdomen and pelvis showing heterogeneous liver, abnormal gallbladder, small lymph node aortocaval. This is a non-contrasted study. MRI also obtained showing gallbladder wall thickening, 6-mm mural enhancement. Small bilateral effusions. Again, therefore Surgery was consulted for further evaluation. On my exam the patient is oriented x 3. He is answering questions appropriately and is afebrile. On further inspection, the patient is denying any significant abdominal pain or any abdominal problems, further denies any scleral icterus, jaundice or change in urinary or stool colors. His repeat laboratory findings have improved in terms of his AST and ALT which are 62 and 171. Bilirubin also has normalized at 0.8. Alk phos also is 95. INR 1.1. The patient and appears to be improving. He has no history of abdominal pain with eating foods such as fatty foods and has no history of gallbladder issues in the past. The patient further denies any weight loss. He appears to be ambulating and functionally appropriately. is also at the bedside and confirms this. He states on the day of admission he did try to get out of bed and fell and is unsure of the total sequence of events. GI is following for further evaluation including possible liver mass and abnormal gallbladder as well. PAST MEDICAL HISTORY Hypertension. PAST SURGICAL HISTORY The patient has no surgeries. ALLERGIES The patient has no documented allergies. MEDICATIONS See EMR. SOCIAL HISTORY Denies smoking, EtOH or IVDA. FAMILY HISTORY Denies any history of cancers or hypertension. REVIEW OF SYSTEMS GENERAL: The patient denies fevers or weight loss. HEENT: Denies eye pain, ear pain or scleral icterus. Denies hoarseness. RESPIRATORY: Denies cough or wheeze. CARDIOVASCULAR: Denies palpitations or chest pain. ABDOMEN: Complains of constipation, nausea, vomiting. Denies abdominal pain, change in stool. : Denies dysuria, hematuria. MUSCULOSKELETAL: Denies arthralgia, myalgia. INTEGUMENT: Denies pruritus or new lesion. NEUROLOGIC: Denies numbness or tingling. PSYCH: Anxiety. Minimal change in mood. PHYSICAL EXAMINATION GENERAL: The patient with no acute distress. VITAL SIGNS: Temperature 98, pulse 78, respiration 20, blood pressure 110/64, 96% saturation. HEENT: PERRLA. Pupils equal, round, reactive. NECK: Supple. Trachea in midline. LUNGS: Bilateral expansion. Clear. HEART: S1, S2. Regular. ABDOMEN: Soft, nontender, nondistended. INTEGUMENT: No signs of jaundice. No obvious new lesions. BACK: Normal curvature, nontender. EXTREMITIES: Warm, well-perfused. NEUROLOGIC: AO x 3 and moving all extremities. PSYCH: Appropriate mood, no current anxiety. LABORATORY AND DIAGNOSTIC DATA Current WBC 10.8, hemoglobin 10, hematocrit 29.8, platelets 234. Sodium 141, potassium 3.6, chloride 110, BUN 17, creatinine 0.93, glucose 187, calcium 7.6, T-bili 1.8, AST is 62, ALT 171, alk phos 95. Tumor markers normal. INR 1.1. IMAGING STUDIES CT reviewed by myself, a noncontrasted study. Questionable liver mass. Abnormal gallbladder. Small enlarged lymph node aortocaval. Ultrasound shows heterogeneity in central liver. MRI - No discrete abnormality. Gallbladder wall thickening, 6-mm mural enhancement. ASSESSMENT The patient is an 81-year-old male status post found down, concern for sepsis, abnormal LFTs, elevated T-bili, alk phos on admission. Rule out acute cholecystitis, MRI with thickened gallbladder and sludge. PLAN After a full clinical and radiological and laboratory workup, the patient with above-named issue including rule out for acute cholecystitis. Clinically the patient is not experiencing any pain indicative of gallbladder pathology. However, on radiologic workup the patient does have some findings concerning for possible cholecystitis with gallbladder sludge. He did have significantly elevated LFTs and total bilirubin and alk phos, shows some concern toward gallbladder etiology and infection. These are improving and resolving with resuscitation and antibiotics. Again, clinically the patient is asymptomatic. At this point in time recommend obtain a HIDA scan for further evaluation and delineation of the gallbladder as a possible etiology. If this is positive, we will consider laparoscopic cholecystectomy versus cholecystostomy tube or other treatment. However, if this is negative, we will continue to observe the patient. This was discussed with the patient in detail who states understanding and agrees. MD CRISTINA Camejo/CLEO /11:38 AM /12:52 PM
[2016-12-22 16:00] VITALS: BP 136/63; PULSE 77; RESP 18; TEMP 98; O2SAT 97
--- NOTE | 2016-12-22 16:34 | HHI.GIFU ---
Subjective Remarks Pt OOB to bathroom and then back to sit on edge of bed. Says he feels fine, no pain, no n/v, eating well, no bowel complaints. He says he cannot consent to surgery when he has no pain. Objective Vitals I&O Vital Signs Date Time Temp Pulse Resp B/P Pulse Ox O2 Delivery O2 Flow Rate FiO2 12/22/16 12:00 98.5 70 18 112/55 97 12/22/16 08:00 97.9 72 18 134/63 97 12/22/16 04:00 97.5 75 18 115/59 96 12/22/16 00:00 97.6 72 18 128/61 97 12/21/16 20:00 98.4 78 18 95/47 95 12/21/16 20:00 74 12/21/16 20:00 Room Air I/O 12/21/16 12/21/16 12/21/16 12/22/16 12/22/16 12/22/16 07:00 15:00 23:00 07:00 15:00 23:00 Intake Total 100 ml 360 ml 480 ml 120 ml Output Total 800 ml 600 ml 450 ml Balance -700 ml 360 ml -120 ml -330 ml Intake Oral 100 ml 360 ml 480 ml 120 ml Output Urine Total 800 ml 600 ml 450 ml # Voids 1 3 # Bowel Movements 1 0 0 0 Laboratory Date/Time Procedure Status Source Growth 12/19/16 06:07 Aerobic Blood Culture - Preliminary Resulted Blood Peripheral NO GROWTH IN 3 DAYS 12/19/16 06:07 Anaerobic Blood Culture - Preliminary Resulted Blood Peripheral NO GROWTH IN 3 DAYS Imaging Last Impressions Hepatobiliary Scan Nuclear Medicine 12/21/16 0000 Signed Impressions: Service Date/Time: Wednesday, December 21, 2016 12:56 - CONCLUSION: Nonvisualization of the gallbladder 2 hours. Findings would be consistent with either acute or chronic cholecystitis. The MRI is more suggestive of an acute cholecystitis. Andres Sprauge MD FACRADDENDUM: 20 hour delayed images were performed. Nonvisualization of the gallbladder again noted. Findings are again suspicious for acute cholecystitis in the proper clinical setting. Ishmael Nixon MD Abdomen MRI 12/19/16 0000 Signed Impressions: Service Date/Time: Monday, December 19, 2016 15:02 - CONCLUSION: 1. No discrete abnormality identified in the liver. 2. Gallbladder wall thickening to 6 mm with some mural enhancement. A mild or low grade cholecystitis could give this appearance. 3. Small bilateral pleural effusions. Jorge Luis White MD Gall Bladder Ultrasound 12/18/16 0000 Signed Impressions: Service Date/Time: Sunday, December 18, 2016 08:40 - CONCLUSION: 1. Vague area of heterogeneity in the area of concern within the central portions of the right lobe of the liver which correlates to the area on the prior CT. The exact etiology is uncertain. I cannot completely exclude a mass. MRI is suggested to further evaluate. 2. Chronic cholecystitis. Details given above. Eder Vitale Jr., MD Head CT 12/17/16 1010 Signed Impressions: Service Date/Time: December 11:04 - CONCLUSION: Normal examination. Eder Vitale Jr., MD Chest X-Ray 12/17/16 1010 Signed Impressions: Service Date/Time: December 10:34 - CONCLUSION: Underinflated examination without an acute finding identified. Cardiac silhouette size is at the upper limits for normal. Bunny Dangelo MD Cervical Spine CT 12/17/16 0000 Signed Impressions: Service Date/Time: December 11:04 - CONCLUSION: 1. No fracture or dislocation. 2. Degenerative changes as detailed above. Eder Vitale Jr., MD Abdomen/Pelvis CT 12/17/16 0000 Signed Impressions: Service Date/Time: December 11:14 - CONCLUSION: 1. No definite acute finding is identified. However, the central liver appears somewhat heterogeneous and it is not clear if this is related to a liver mass, abnormal gallbladder, or artifact. When the patient's condition permits suggest contrast enhanced CT or MRI of the liver. 2. There is a single mildly enlarged aortocaval lymph node. No other lymphadenopathy is present. 3. Nonacute findings include moderate atherosclerotic disease and prostatomegaly. Bunny Dangelo MD Physical Exam HENT: EOMI, normocephalic CHEST: CTA HEART: RRR GI: nontender, soft, nondistended, + BS EXTREMITIES: no edema SKIN: normal, no jaundice or rash [employer]: AO Assessment and Plan Plan - Elevated LFTs possible liver mass vs gallbladder dz- LFTs improving, multifactorial possible shocked liver vs liver mass or gallbladder today wbc 17.6, AST 26 ALT 87, ALP 81, bili 0.8. Toxicology negative SOMMER, ASMA neg. .AFP 1.1, CA 19-9 4.7, CEA 2.6. 12-21-16 HIDA ---Nonvisualization of the gallbladder 2 hours. Findings would be consistent with either acute or chronic cholecystitis. The MRI is more suggestive of an acute cholecystitis. ADDENDUM: 20 hour delayed images were performed. Nonvisualization of the gallbladder again noted. Findings are again suspicious for acute cholecystitis in the proper clinical setting MRabd 12-20-16 --->1. No discrete abnormality identified in the liver. 2. Gallbladder wall thickening to 6 mm with some mural enhancement. A mild or low grade cholecystitis could give this appearance. 3. Small bilateral pleural effusions. US on (12/18/16) Vague area of heterogeneity in the area of concern within the central portions of the right lobe of the liver which correlates to the area on the prior CT. The exact etiology is uncertain. I cannot completely exclude a mass. MRI is suggested to further evaluate. 2. Chronic cholecystitis. Details given above. Non contrasted Ct on (12/17/16) 1. No definite acute finding is identified. However, the central liver appears somewhat heterogeneous and it is not clear if this is related to a liver mass, abnormal gallbladder, or artifact. When the patient's condition permits suggest contrast enhanced CT or MRI of the liver. 2. There is a single mildly enlarged aortocaval lymph node. No other lymphadenopathy is present. 3. Nonacute findings include moderate atherosclerotic disease and prostatomegaly. Patient denies previous hx of liver disease, denies alcohol. He denies herbs, Tylenol or recent abx. HIDA pos and pt is refusing cholecystectomy. - Sepsis due to to strep species- Currently on Ceftriaxone managed by ID. - leukocytosis- 17.6 - AMS- improved head Ct negative - HTN per attending Plan: - TONI - immunology/serology labs pending - Monitor labs - Further recommendation to follow pending results above - Supportive care - Patient seen and examined by dr. Roy and myself and this note is written on her behalf. Tri Smith December 22, 2016 16:34
[2016-12-22] MEDS: cefTRIAXone INJ 2,000 MG in SODIUM CHLORIDE 0.9% INJ 100 ML IV SCH (16:58)
[2016-12-22 20:00] VITALS: BP 155/69; PULSE 83; PULSE 85; RESP 20; TEMP 98.1; O2SAT 97
[2016-12-23] VITALS: BP 154/67; PULSE 85; RESP 20; TEMP 98.4; O2SAT 97
[2016-12-23] MEDS: CHLORHEXIDINE GLUCONATE 2 % 1 PACK (2 CLOTHS) TOP SCH (03:34)
[2016-12-23 04:00] VITALS: BP 149/67; PULSE 74; RESP 20; TEMP 97.1; O2SAT 99
[2016-12-23] MEDS: HEPARIN SODIUM - SQ 10,000 UNITS/ML VIAL SQ SCH ×2 (04:02→15:10)
[2016-12-23 07:16] LABS: AUTOMATED NEUTROPHIL # 6.2 TH/MM3 (1.8-7.7); BASOPHIL # 0.1 TH/MM3 (0-0.2); BASOPHIL % 0.4 % (0.0-2.0); EOSINOPHIL # 0.2 TH/MM3 (0-0.4); EOSINOPHIL % 1.2 % (0.0-4.0); HEMATOCRIT 34.8 % (39.0-51.0); HEMO FLAGS AUTO DIFF; LYMPH % 57.7 % (9.0-44.0); LYMPHOCYTE # 9.6 TH/MM3 (1.0-4.8); MEAN CELL VOLUME 80.5 FL (80.0-100.0); MEAN CORPUSCULAR HEMOGLOBIN 25.4 PG (27.0-34.0); MEAN CORPUSCULAR HGB CONC 31.5 % (32.0-36.0); MONO % 3.5 % (0.0-8.0); NEUT % 37.2 % (16.0-70.0); PLATELET COUNT 332 TH/MM3 (150-450); RED BLOOD COUNT 4.32 MIL/MM3 (4.50-5.90); RED CELL DISTRIBUTION WIDTH 16.4 % (11.6-17.2); WHITE BLOOD COUNT 16.7 TH/MM3 (4.0-11.0)
[2016-12-23 07:42] LABS: BICARBONATE 26.4 MEQ/L (21.0-32.0); INDIRECT BILIRUBIN 0.3 MG/DL (0.0-0.8); POTASSIUM 3.7 MEQ/L (3.5-5.1); TOTAL BILIRUBIN ADULT 0.5 MG/DL (0.2-1.0)
[2016-12-23 08:00] VITALS: BP 145/67; PULSE 72; RESP 20; TEMP 97.7; O2SAT 96
[2016-12-23] MEDS: SODIUM CHLOR 0.45% 1000 ML INJ 1,000 ML IV SCH (08:35)
--- NOTE | 2016-12-23 08:35 | HHI.PR ---
Subjective Remarks No abdominal pain. No fevers or chills overnight. Denies n/v/d/c. Eating well. Ambulating. Patient says he feels good and he wants to go home. Objective Vitals Vital Signs Date Time Temp Pulse Resp B/P Pulse Ox O2 Delivery O2 Flow Rate FiO2 12/23/16 04:00 97.1 74 20 149/67 99 12/23/16 00:00 98.4 85 20 154/67 97 12/22/16 20:00 Room Air 12/22/16 20:00 85 12/22/16 20:00 98.1 83 20 155/69 97 12/22/16 16:00 98.0 77 18 136/63 97 12/22/16 12:00 98.5 70 18 112/55 97 I/O 12/22/16 12/22/16 12/22/16 12/23/16 12/23/16 12/23/16 07:00 15:00 23:00 07:00 15:00 23:00 Intake Total 120 ml 480 ml 2748 ml 0 ml Output Total 450 ml 250 ml Balance -330 ml 480 ml 2748 ml -250 ml Intake Oral 120 ml 480 ml 480 ml 0 ml IV Total 2268 ml Output Urine Total 450 ml 250 ml # Voids 2 3 # Bowel Movements 0 2 2 Result Diagram: 12/23/16 0640 12/23/16 0640 Imaging Last Impressions Hepatobiliary Scan Nuclear Medicine 12/21/16 0000 Signed Impressions: Service Date/Time: Wednesday, December 21, 2016 12:56 - CONCLUSION: Nonvisualization of the gallbladder 2 hours. Findings would be consistent with either acute or chronic cholecystitis. The MRI is more suggestive of an acute cholecystitis. Andres Sprague MD FACRADDENDUM: 20 hour delayed images were performed. Nonvisualization of the gallbladder again noted. Findings are again suspicious for acute cholecystitis in the proper clinical setting. Ishmael Nixon MD Abdomen MRI 12/19/16 0000 Signed Impressions: Service Date/Time: Monday, December 19, 2016 15:02 - CONCLUSION: 1. No discrete abnormality identified in the liver. 2. Gallbladder wall thickening to 6 mm with some mural enhancement. A mild or low grade cholecystitis could give this appearance. 3. Small bilateral pleural effusions. Jorge Luis White MD Gall Bladder Ultrasound 12/18/16 0000 Signed Impressions: Service Date/Time: Sunday, December 18, 2016 08:40 - CONCLUSION: 1. Vague area of heterogeneity in the area of concern within the central portions of the right lobe of the liver which correlates to the area on the prior CT. The exact etiology is uncertain. I cannot completely exclude a mass. MRI is suggested to further evaluate. 2. Chronic cholecystitis. Details given above. Eder Vitale Jr., MD Head CT 12/17/16 1010 Signed Impressions: Service Date/Time: December 11:04 - CONCLUSION: Normal examination. Eder Vitale Jr., MD Chest X-Ray 12/17/16 1010 Signed Impressions: Service Date/Time: December 10:34 - CONCLUSION: Underinflated examination without an acute finding identified. Cardiac silhouette size is at the upper limits for normal. Bunny Dangelo MD Cervical Spine CT 12/17/16 0000 Signed Impressions: Service Date/Time: December 11:04 - CONCLUSION: 1. No fracture or dislocation. 2. Degenerative changes as detailed above. Eder Vitale Jr., MD Abdomen/Pelvis CT 12/17/16 0000 Signed Impressions: Service Date/Time: December 11:14 - CONCLUSION: 1. No definite acute finding is identified. However, the central liver appears somewhat heterogeneous and it is not clear if this is related to a liver mass, abnormal gallbladder, or artifact. When the patient's condition permits suggest contrast enhanced CT or MRI of the liver. 2. There is a single mildly enlarged aortocaval lymph node. No other lymphadenopathy is present. 3. Nonacute findings include moderate atherosclerotic disease and prostatomegaly. Bunny Dangelo MD Objective Remarks GENERAL: Elderly appearing gentleman, in no apparent distress, appropriately conversant SKIN: Warm and dry. HEAD: Atraumatic. Normocephalic. EYES: Pupils equal and round, 3 mm breath. No scleral icterus. No injection or drainage. ENT: No nasal bleeding or discharge. Mucous membranes pink and moist. NECK: Trachea midline. No JVD. CARDIOVASCULAR: Normal rate, regular rhythm. RESPIRATORY: No accessory muscle use. Clear to auscultation. Breath sounds equal bilaterally. GASTROINTESTINAL: Abdomen soft, non-tender, nondistended. No guarding. MUSCULOSKELETAL: Extremities without clubbing, cyanosis, or edema. No obvious deformities. NEUROLOGICAL: Awake and alert. RASS 0. No gross focal/sensory deficits. Follows commands in all 4 extremities. A/P Assessment and Plan Heme/ID: Sepsis Bacteremia GPC (3/). Repeat blood cx 12/19/16 are NTD Patient received Vancomycin and Zosyn in the ED Monitor serial lactate Monitor and follow-up blood cultures Empiric antibiotics initiated vancomycin and cefepime. Consult ID , seen by Dr Bo. DC cefepime and start rocephine, cont vanco. ID following. Tylenol for temperature greater than 101 5/for Legionellanegative Acute Cholecystitis. Gen surg consulted. HIDA scan positive. Gen surgery following Dr doran appreciate recommendations. Patient refusing cholecystectomy. He states he does not want surgery. Consider cholecystostomy tube if symptoms progress and pt still not wanting surgery. c/w abdominal exams, monitor labs Iron deficiency anemia./ Start iron supplement. Received venofer IV. Neurologic: Metabolic encephalopathy secondary to sepsis. Resolved, back to baseline. Avoid sedatives medications Checks per ICU protocol Maintain sleep hygiene 12/17 CT brain- no abnormality Respiratory: No acute issues 10 O2 sat greater than 92%. O2 14 L/m nasal cannula if needed Maintain head of bed greater than 30 Cardiovascular: 12/17 diffuse EKG changes 12/17 echo-Ejection fraction 5560 percent. No regional wall motion abnormalities BNP 156, continue to monitor Serial troponin neg Renal: Renal insufficiency No Ward -- Strict I/Os FEN/GI: Received 2 L of normal saline on admission (ED) Continue normal saline at 100 cc/hour Heart healthy diet Monitor BMP CT abdomen and pelvis-recommendation for MRI CT repeat with contrast, abnormal liver contour Bowel regimen Follow-up CMP T Bili, alk phosphatase noted elevated and GI was consulted. Trend levels, improving. Patient has acute rachell Consult GI , appreciate recommendations. work up pending, tumor markers so far negative Endocrine: Glucose monitoring per ICU protocol -- SSI Prophylaxis: GI Prophylaxis --Protonix DVT Prophylaxis-- SCDs Heparin SQ DC ward, monitor voiding Code Status Full Discussed Condition With Patient, nurse, at bedside. Patient wants to go home. He is symptomatic at this time. Refusing surgery. ID can arrange IV abx infusion. Case management consult for arrangements as OP for infusion. Patient however doesn't have insurance. Emmie Ovalles MD December 23, 2016 08:35
[2016-12-23] MEDS: DOCUSATE SODIUM 100 MG CAP PO SCH (08:36)
[2016-12-23] MEDS: PANTOPRAZOLE SODIUM 40 MG VIAL IV SCH (08:36)
[2016-12-23] MEDS: SODIUM CHLORIDE 0.9% FLUSH 10 ML FLUSH IV FLUSH SCH (08:36)
[2016-12-23] MEDS ORDERED: FERR325T PO (08:57)
--- NOTE | 2016-12-23 08:58 | HHI.FF ---
Face to Face Verification Diagnosis: (1) Severe sepsis (2) Bacteremia Home Health Nursing Order: IV medication administration I have seen patient Jose Durán on 12/23/16. My clinical findings support the need for the requested home health care services because: Ltd mobility - disease progression I certify that my clinical findings support that this patient is homebound because: Post-op weakness Emmie Ovalles MD December 23, 2016 08:58
--- NOTE | 2016-12-23 08:58 | HHI.DS ---
Discharge Summary Admission Date December 17, 2016 at 12:44 Discharge Date: December 23, 2016 Admitting Diagnosis sepsis (1) Severe sepsis ICD Code: A41.9 Diagnosis: Principal (2) Bacteremia ICD Code: R78.81 Diagnosis: Principal (3) Transaminitis ICD Code: R74.0 Diagnosis: Principal (4) Anemia ICD Code: D64.9 Diagnosis: Principal (5) Cholecystitis ICD Code: K81.9 Diagnosis: Principal (6) ST segment changes on electrocardiogram ICD Code: R94.31 Diagnosis: Secondary (7) Elevated troponin ICD Code: R74.8 Diagnosis: Secondary Procedures none Brief History - From Admission 81-year-old male that presented to the ED and found down for an unknown period of time. The has dementia and it was unknown how long he had been down on the ground. He was covered in urine and feces. Upon presentation to the ED , the patient also spoke only a small amount of [place] and mainly speaks Ukrainian. Unable to obtain a history initially the ED . Upon entering the ED, the patient was alert and oriented 3, patient reports he was in the bed and he fell out of the bed and did not know how long she had been down on the floor. The patient's blood pressure upon my evaluation 112/76, to receiving several liters of crystalloid, and empiric antibiotics. Critical care medicine is consulted for further management. History PFSH Past Medical History Medical History: Unable to Obtain Past Surgical History Surgical History: Unable to Obtain Social History Tobacco Use: No (unable to obtain) Allergies-Medications Allergies-Medications (Allergen,Severity, Reaction): Coded Allergies: UNOBTAINABLE (Unverified , 12/17/16) Reported Meds & Prescriptions Reported Meds & Active Scripts Active Reported Milk of Magnesia Liq (Magnesium Hydroxide) 400 Mg/5 Ml Susp 45 Ml PO HS Hydrochlorothiazide 25 Mg Tab 25 Mg PO DAILY ROS Review of Systems Except as stated in HPI: all other systems reviewed are Neg CBC/BMP: 12/23/16 0640 12/23/16 0640 Significant Findings Laboratory Tests Test 12/21/16 12/23/16 11:10 06:40 White Blood Count 17.6 TH/MM3 16.7 TH/MM3 (4.0-11.0) (4.0-11.0) Red Blood Count 3.86 MIL/MM3 4.32 MIL/MM3 (4.50-5.90) (4.50-5.90) Hemoglobin 9.9 GM/DL 11.0 GM/DL (13.0-17.0) (13.0-17.0) Hematocrit 31.0 % 34.8 % (39.0-51.0) (39.0-51.0) Mean Corpuscular Hemoglobin 25.7 PG 25.4 PG (27.0-34.0) (27.0-34.0) Neutrophils # (Auto) 9.5 TH/MM3 (1.8-7.7) Lymphocytes # (Auto) 7.1 TH/MM3 9.6 TH/MM3 (1.0-4.8) (1.0-4.8) Lymphocytes % 52 % (9-44) Neutrophils # (Manual) 7.9 TH/MM3 (1.8-7.7) Potassium Level 3.4 MEQ/L (3.5-5.1) Random Glucose 212 MG/DL 140 MG/DL (74-106) (74-106) Calcium Level 8.1 MG/DL 8.2 MG/DL (8.5-10.1) (8.5-10.1) Alanine Aminotransferase 87 U/L (12-78) (ALT/SGPT) Total Protein 6.1 GM/DL (6.4-8.2) Albumin 2.5 GM/DL 2.7 GM/DL (3.4-5.0) (3.4-5.0) Mean Corpuscular Hemoglobin 31.5 % Concent (32.0-36.0) Lymphocytes (%) (Auto) 57.7 % (9.0-44.0) Estimat Glomerular Filtration 80 ML/MIN (>89) Rate Imaging Last Impressions Hepatobiliary Scan Nuclear Medicine 12/21/16 0000 Signed Impressions: Service Date/Time: Wednesday, December 21, 2016 12:56 - CONCLUSION: Nonvisualization of the gallbladder 2 hours. Findings would be consistent with either acute or chronic cholecystitis. The MRI is more suggestive of an acute cholecystitis. Andres Sprague MD FACRADDENDUM: 20 hour delayed images were performed. Nonvisualization of the gallbladder again noted. Findings are again suspicious for acute cholecystitis in the proper clinical setting. Ishmael Nixon MD Abdomen MRI 12/19/16 0000 Signed Impressions: Service Date/Time: Monday, December 19, 2016 15:02 - CONCLUSION: 1. No discrete abnormality identified in the liver. 2. Gallbladder wall thickening to 6 mm with some mural enhancement. A mild or low grade cholecystitis could give this appearance. 3. Small bilateral pleural effusions. Jorge Luis White MD Gall Bladder Ultrasound 12/18/16 0000 Signed Impressions: Service Date/Time: Sunday, December 18, 2016 08:40 - CONCLUSION: 1. Vague area of heterogeneity in the area of concern within the central portions of the right lobe of the liver which correlates to the area on the prior CT. The exact etiology is uncertain. I cannot completely exclude a mass. MRI is suggested to further evaluate. 2. Chronic cholecystitis. Details given above. Eder Vitale Jr., MD Head CT 12/17/16 1010 Signed Impressions: Service Date/Time: December 11:04 - CONCLUSION: Normal examination. Eder Vitale Jr., MD Chest X-Ray 12/17/16 1010 Signed Impressions: Service Date/Time: December 10:34 - CONCLUSION: Underinflated examination without an acute finding identified. Cardiac silhouette size is at the upper limits for normal. Bunny Dangelo MD Cervical Spine CT 12/17/16 0000 Signed Impressions: Service Date/Time: December 11:04 - CONCLUSION: 1. No fracture or dislocation. 2. Degenerative changes as detailed above. Eder Vitale Jr., MD Abdomen/Pelvis CT 12/17/16 0000 Signed Impressions: Service Date/Time: December 11:14 - CONCLUSION: 1. No definite acute finding is identified. However, the central liver appears somewhat heterogeneous and it is not clear if this is related to a liver mass, abnormal gallbladder, or artifact. When the patient's condition permits suggest contrast enhanced CT or MRI of the liver. 2. There is a single mildly enlarged aortocaval lymph node. No other lymphadenopathy is present. 3. Nonacute findings include moderate atherosclerotic disease and prostatomegaly. Bunny Dangelo MD PE at Discharge GENERAL: Elderly appearing gentleman, in no apparent distress, appropriately conversant SKIN: Warm and dry. HEAD: Atraumatic. Normocephalic. EYES: Pupils equal and round, 3 mm breath. No scleral icterus. No injection or drainage. ENT: No nasal bleeding or discharge. Mucous membranes pink and moist. NECK: Trachea midline. No JVD. CARDIOVASCULAR: Normal rate, regular rhythm. RESPIRATORY: No accessory muscle use. Clear to auscultation. Breath sounds equal bilaterally. GASTROINTESTINAL: Abdomen soft, non-tender, nondistended. No guarding. MUSCULOSKELETAL: Extremities without clubbing, cyanosis, or edema. No obvious deformities. NEUROLOGICAL: Awake and alert. RASS 0. No gross focal/sensory deficits. Follows commands in all 4 extremities. Hospital Course Sepsis Bacteremia GPC (10/17). Repeat blood cx 12/19/16 are NTD Patient received Vancomycin and Zosyn in the ED Monitor serial lactate Monitor and follow-up blood cultures Empiric antibiotics initiated vancomycin and cefepime. Consult ID , seen by Dr Bo. DC cefepime and start rocephine, cont vanco. ID following. Tylenol for temperature greater than 101 5/for Legionellanegative Acute Cholecystitis. Gen surg consulted. HIDA scan positive. Gen surgery following Dr doran appreciate recommendations. Patient refusing cholecystectomy. He states he does not want surgery. Consider cholecystostomy tube if symptoms progress and pt still not wanting surgery. c/w abdominal exams, monitor labs Iron deficiency anemia./ Start iron supplement. Received venofer IV. Neurologic: Metabolic encephalopathy secondary to sepsis. Resolved, back to baseline. Avoid sedatives medications Checks per ICU protocol Maintain sleep hygiene / CT brain- no abnormality Respiratory: No acute issues 10 O2 sat greater than 92%. O2 14 L/m nasal cannula if needed Maintain head of bed greater than 30 Cardiovascular: 12/17 diffuse EKG changes 12/17 echo-Ejection fraction 5560 percent. No regional wall motion abnormalities BNP 156, continue to monitor Serial troponin neg Renal: Renal insufficiency No Ward -- Strict I/Os FEN/GI: Received 2 L of normal saline on admission (ED) Continue normal saline at 100 cc/hour Heart healthy diet Monitor BMP CT abdomen and pelvis-recommendation for MRI CT repeat with contrast, abnormal liver contour Bowel regimen Follow-up CMP T Bili, alk phosphatase noted elevated and GI was consulted. Trend levels, improving. Patient has acute rachell Consult GI , appreciate recommendations. work up pending, tumor markers so far negative Endocrine: Glucose monitoring per ICU protocol -- SSI Prophylaxis: GI Prophylaxis --Protonix DVT Prophylaxis-- SCDs Heparin SQ DC ward, monitor voiding Code Status Full Discussed Condition With Patient, nurse, at bedside. Patient wants to go home. He is symptomatic at this time. Refusing surgery. ID can arrange IV abx infusion. Case management consult for arrangements as OP for infusion. The patient was discharged home with home health infusion.Ceftriaxone 2 grams IV q 24 hour. Stop Treatment: December 29, 2016 Pt Condition on Discharge: Stable Discharge Disposition: Disch w/ Home Health Serv Discharge Time: > 30 minutes Discharge Instructions DIET: Follow Instructions for: Heart Healthy Diet Activities you can perform: Regular-No Restrictions Follow up Referrals: PCP Follow-up - 3-5 Days with Shanon Bejarano MD Surgical - 1 Week New Medications: Ferrous Sulfate (Ferrous Sulfate) 325 Mg Tab 325 MG PO BID@12,17 iron deficiency anemia #30 TAB Continued Medications: Hydrochlorothiazide (Hydrochlorothiazide) 25 Mg Tab 25 MG PO DAILY #30 Ref 0 TAB Magnesium Hydroxide Liq (Milk of Magnesia Liq) 400 Mg/5 Ml Susp 45 ML PO HS Constipation #1 Ref 0 BOTTLE Emmie Ovalles MD December 23, 2016 08:58
--- NOTE | 2016-12-23 09:54 | HHI.GIFU ---
Subjective Remarks Resting in bed. No n/v, no abdominal pain. Tolerating diet. Refusing cholecystectomy and cholecystomy tube. (Sol Renteria) Objective Vitals I&O Vital Signs Date Time Temp Pulse Resp B/P Pulse Ox O2 Delivery O2 Flow Rate FiO2 12/23/16 04:00 97.1 74 20 149/67 99 12/23/16 00:00 98.4 85 20 154/67 97 12/22/16 20:00 Room Air 12/22/16 20:00 85 12/22/16 20:00 98.1 83 20 155/69 97 12/22/16 16:00 98.0 77 18 136/63 97 12/22/16 12:00 98.5 70 18 112/55 97 I/O 12/22/16 12/22/16 12/22/16 12/23/16 12/23/16 12/23/16 06:59 14:59 22:59 06:59 14:59 22:59 Intake Total 120 ml 480 ml 2748 ml 0 ml Output Total 450 ml 250 ml Balance -330 ml 480 ml 2748 ml -250 ml Intake Oral 120 ml 480 ml 480 ml 0 ml IV Total 2268 ml Output Urine Total 450 ml 250 ml # Voids 2 3 # Bowel Movements 0 2 2 Laboratory Laboratory Tests Test 12/23/16 06:40 White Blood Count 16.7 Red Blood Count 4.32 Hemoglobin 11.0 Hematocrit 34.8 Mean Corpuscular Volume 80.5 Mean Corpuscular Hemoglobin 25.4 Mean Corpuscular Hemoglobin 31.5 Concent Red Cell Distribution Width 16.4 Platelet Count 332 Mean Platelet Volume 8.1 Neutrophils (%) (Auto) 37.2 Lymphocytes (%) (Auto) 57.7 Monocytes (%) (Auto) 3.5 Eosinophils (%) (Auto) 1.2 Basophils (%) (Auto) 0.4 Neutrophils # (Auto) 6.2 Lymphocytes # (Auto) 9.6 Monocytes # (Auto) 0.6 Eosinophils # (Auto) 0.2 Basophils # (Auto) 0.1 CBC Comment AUTO DIFF Sodium Level 138 Potassium Level 3.7 Chloride Level 103 Carbon Dioxide Level 26.4 Anion Gap 9 Blood Urea Nitrogen 12 Creatinine 0.91 Estimat Glomerular Filtration 80 Rate Random Glucose 140 Calcium Level 8.2 Total Bilirubin 0.5 Direct Bilirubin 0.2 Indirect Bilirubin 0.3 Aspartate Amino Transf 21 (AST/SGOT) Alanine Aminotransferase 68 (ALT/SGPT) Alkaline Phosphatase 91 Total Protein 6.8 Albumin 2.7 Date/Time Procedure Status Source Growth 12/19/16 06:07 Aerobic Blood Culture - Preliminary Resulted Blood Peripheral NO GROWTH IN 3 DAYS 12/19/16 06:07 Anaerobic Blood Culture - Preliminary Resulted Blood Peripheral NO GROWTH IN 3 DAYS Imaging Last Impressions Hepatobiliary Scan Nuclear Medicine 12/21/16 0000 Signed Impressions: Service Date/Time: Wednesday, December 21, 2016 12:56 - CONCLUSION: Nonvisualization of the gallbladder 2 hours. Findings would be consistent with either acute or chronic cholecystitis. The MRI is more suggestive of an acute cholecystitis. Andres Sprague MD FACRADDENDU: 20 hour delayed images were performed. Nonvisualization of the gallbladder again noted. Findings are again suspicious for acute cholecystitis in the proper clinical setting. Ishmael Nixon MD Abdomen MRI 12/19/16 0000 Signed Impressions: Service Date/Time: Monday, December 19, 2016 15:02 - CONCLUSION: 1. No discrete abnormality identified in the liver. 2. Gallbladder wall thickening to 6 mm with some mural enhancement. A mild or low grade cholecystitis could give this appearance. 3. Small bilateral pleural effusions. Jorge Luis White MD Gall Bladder Ultrasound 12/18/16 0000 Signed Impressions: Service Date/Time: Sunday, December 18, 2016 08:40 - CONCLUSION: 1. Vague area of heterogeneity in the area of concern within the central portions of the right lobe of the liver which correlates to the area on the prior CT. The exact etiology is uncertain. I cannot completely exclude a mass. MRI is suggested to further evaluate. 2. Chronic cholecystitis. Details given above. Eder Vitale Jr., MD Head CT 12/17/16 1010 Signed Impressions: Service Date/Time: December 11:04 - CONCLUSION: Normal examination. Eder Vitale Jr., MD Chest X-Ray 12/17/16 1010 Signed Impressions: Service Date/Time: December 10:34 - CONCLUSION: Underinflated examination without an acute finding identified. Cardiac silhouette size is at the upper limits for normal. Bunny Dangelo MD Cervical Spine CT 12/17/16 0000 Signed Impressions: Service Date/Time: December 11:04 - CONCLUSION: 1. No fracture or dislocation. 2. Degenerative changes as detailed above. Eder Vitale Jr., MD Abdomen/Pelvis CT 12/17/16 0000 Signed Impressions: Service Date/Time: December 11:14 - CONCLUSION: 1. No definite acute finding is identified. However, the central liver appears somewhat heterogeneous and it is not clear if this is related to a liver mass, abnormal gallbladder, or artifact. When the patient's condition permits suggest contrast enhanced CT or MRI of the liver. 2. There is a single mildly enlarged aortocaval lymph node. No other lymphadenopathy is present. 3. Nonacute findings include moderate atherosclerotic disease and prostatomegaly. Bunny Dangelo MD Physical Exam HEENT:Normocephalic, atraumatic CHEST: CTA HEART: RRR GI: nontender, soft, nondistended, + BS EXTREMITIES: no edema SKIN: normal, no jaundice or rash VESSEL SCRAPPER HELPER: AO (Sol Renteria) Assessment and Plan Plan ASSESSMENT: - Elevated LFTs with abnormal imaging of the GB. CT scan abdomen and pelvis ()---> 1. No definite acute finding is identified. However, the central liver appears somewhat heterogeneous and it is not clear if this is related to a liver mass, abnormal gallbladder, or artifact. When the patient's condition permits suggest contrast enhanced CT or MRI of the liver. 2. There is a single mildly enlarged aortocaval lymph node. No other lymphadenopathy is present. 3. Nonacute findings include moderate atherosclerotic disease and prostatomegaly. US on (12/18/16)---> Vague area of heterogeneity in the area of concern within the central portions of the right lobe of the liver which correlates to the area on the prior CT. The exact etiology is uncertain. I cannot completely exclude a mass. MRI is suggested to further evaluate. MRI (12/20/16)---> 1. No discrete abnormality identified in the liver. 2. Gallbladder wall thickening to 6 mm with some mural enhancement. A mild or low grade cholecystitis could give this appearance. 3. Small bilateral pleural effusions. 2. Chronic cholecystitis. Details given above. HIDA (12/21/16)----> Nonvisualization of the gallbladder 2 hours. Findings would be consistent with either acute or chronic cholecystitis. The MRI is more suggestive of an acute cholecystitis. ADDENDUM: 20 hour delayed images were performed. Nonvisualization of the gallbladder again noted. Findings are again suspicious for acute cholecystitis in the proper clinical setting. AFP 1.1, CA 19-9 4.7, CEA 2.6. Hepatitis negative, SOMMER negative, AMA pending, ASMA negative, Celiac panel negative, Ceruloplasmin pending, Alpha 1 antitrypsin 169, Iron saturation 7.0%. LFTs normalized. GS following for cholecystitis Pt asymptomatic, refusing cholecystectomy/cholecystomy tube. WBC 16.7. On abx. - Chronic cholecystitis. GS following, patient is asymptomatic although did have bacteremia and continues to have leukocytosis. He continues to refuse cholecystectomy and cholecystomy tube. Getting ceftriaxone. - Bacteremia/Sepsis/Leukocytosis. Cx with Viridants streptococcus/Staph coagulase negative. Ceftriaxone. ID following. - HTN per attending Plan: - TONI - Await AMA - Cont. Abx per ID recommendations - Monitor labs - GS following, refusing cholecystectomy/cholecystomy tube - GI will sign off, please reconsult as needed - Patient seen and examined by Dr. Roy and myself and this note is written on her behalf. (Sol Renteria) Sol Renteria December 23, 2016 09:54 Grace Roy MD December 23, 2016 18:22
[2016-12-23 10:30] LABS: BANDS 2 % (0-6); EOSINOPHILS 1 % (0-4); METAMYELOCYTES 1 % (0-1); NEUTROPHIL # MANUAL DIFF 5.2 TH/MM3 (1.8-7.7); PLATELET ESTIMATE SMEAR NORMAL (NORMAL); PLATELET MORPHOLOGY NORMAL (NORMAL); POLYS (SEG NEUTROPHILS) 28 % (16-70); SCAN/DIFF FINAL DIFF MANUAL; WBC DIFF SAMPLE 100
[2016-12-23 10:31] LABS: OVALOCYTES 1+ (NORMAL); STOMATOCYTES 1+ (NORMAL)
[2016-12-23] MEDS: FERROUS SULFATE 325 MG (65 MG ELEMENTAL IRON) TAB PO SCH ×2 (11:29→17:32)
[2016-12-23 12:00] VITALS: BP 118/56; PULSE 78; RESP 20; TEMP 97.7; O2SAT 95
--- NOTE | 2016-12-23 14:00 | HHI.PR ---
Subjective Subjective Notes Resting in bed at bedside Reports no abdominal pain Still does not want surgery Objective Vitals/I&O Vital Signs Date Time Temp Pulse Resp B/P Pulse Ox O2 Delivery O2 Flow Rate FiO2 12/23/16 08:00 97.7 72 20 145/67 96 12/22/16 20:00 Room Air Labs Laboratory Tests Test 12/23/16 06:40 White Blood Count 16.7 Red Blood Count 4.32 Hemoglobin 11.0 Hematocrit 34.8 Mean Corpuscular Volume 80.5 Mean Corpuscular Hemoglobin 25.4 Mean Corpuscular Hemoglobin 31.5 Concent Red Cell Distribution Width 16.4 Platelet Count 332 Mean Platelet Volume 8.1 Neutrophils (%) (Auto) 37.2 Lymphocytes (%) (Auto) 57.7 Monocytes (%) (Auto) 3.5 Eosinophils (%) (Auto) 1.2 Basophils (%) (Auto) 0.4 Neutrophils # (Auto) 6.2 Lymphocytes # (Auto) 9.6 Monocytes # (Auto) 0.6 Eosinophils # (Auto) 0.2 Basophils # (Auto) 0.1 CBC Comment AUTO DIFF Differential Total Cells 100 Counted Neutrophils % (Manual) 28 Band Neutrophils % 2 Lymphocytes % 63 Monocytes % 5 Eosinophils % 1 Neutrophils # (Manual) 5.2 Metamyelocytes 1 Differential Comment FINAL DIFF MANUAL Platelet Estimate NORMAL Platelet Morphology Comment NORMAL Ovalocytes 1+ Stomatocytes 1+ Sodium Level 138 Potassium Level 3.7 Chloride Level 103 Carbon Dioxide Level 26.4 Anion Gap 9 Blood Urea Nitrogen 12 Creatinine 0.91 Estimat Glomerular Filtration 80 Rate Random Glucose 140 Calcium Level 8.2 Total Bilirubin 0.5 Direct Bilirubin 0.2 Indirect Bilirubin 0.3 Aspartate Amino Transf 21 (AST/SGOT) Alanine Aminotransferase 68 (ALT/SGPT) Alkaline Phosphatase 91 Total Protein 6.8 Albumin 2.7 Date/Time Procedure Status Source Growth 12/19/16 06:07 Aerobic Blood Culture - Preliminary Resulted Blood Peripheral NO GROWTH IN 4 DAYS 12/19/16 06:07 Anaerobic Blood Culture - Preliminary Resulted Blood Peripheral NO GROWTH IN 4 DAYS Cardiovascular: Regular Lungs: Clear Abdomen: Non-distended, Non-tender Extremities: No edema A/P Assessment and Plan 81 year old male with acute cholecystitis -Tolerating regular diet -Abdominal exam benign -Patient does not wish to pursue surgery to have gallbladder removed - Will s/o please reconsult if pt changes mind or if surgery is needed. Attending Statement patient seen at bedside labs concerning clinically doing well refuse surgery Attestation The exam, history, and the medical decision-making described in the above note were completed with the assistance of the mid-level provider. I reviewed and agree with the findings presented. I attest that I had a [id number] encounter with the patient on the same day, and personally performed and documented my assessment and findings in the medical record. Jovana Oneill December 23, 2016 14:00 Naldo Celeste MD December 23, 2016 16:13
--- NOTE | 2016-12-23 15:38 | HHI.IDPN ---
Note Infectious Disease Note Patient without complaints. No distress. No fever. Denies abdominal pain. No SOB. No chills. ALLERGIES NO KNOWN DRUG ALLERGIES. MEDICATIONS Ceftriaxone. SOCIAL HISTORY The patient denies alcohol, tobacco or illicit drugs. FAMILY HISTORY Noncontributory. OBJECTIVE: Vital Signs Date Time Temp Pulse Resp B/P Pulse Ox O2 Delivery O2 Flow Rate FiO2 12/23/16 08:00 97.7 72 20 145/67 96 12/23/16 04:00 97.1 74 20 149/67 99 12/23/16 00:00 98.4 85 20 154/67 97 12/22/16 20:00 Room Air 12/22/16 20:00 85 12/22/16 20:00 98.1 83 20 155/69 97 12/22/16 16:00 98.0 77 18 136/63 97 12/22/16 12/22/16 12/23/16 15:00 23:00 07:00 Intake Total 480 ml 2748 ml 0 ml Output Total 250 ml Balance 480 ml 2748 ml -250 ml Intake Oral 480 ml 480 ml 0 ml IV Total 2268 ml Output Urine Total 250 ml # Voids 2 3 # Bowel Movements 2 2 Laboratory Tests Test 12/23/16 06:40 White Blood Count 16.7 TH/MM3 Red Blood Count 4.32 MIL/MM3 Hemoglobin 11.0 GM/DL Hematocrit 34.8 % Mean Corpuscular Volume 80.5 FL Mean Corpuscular Hemoglobin 25.4 PG Mean Corpuscular Hemoglobin 31.5 % Concent Red Cell Distribution Width 16.4 % Platelet Count 332 TH/MM3 Mean Platelet Volume 8.1 FL Neutrophils (%) (Auto) 37.2 % Lymphocytes (%) (Auto) 57.7 % Monocytes (%) (Auto) 3.5 % Eosinophils (%) (Auto) 1.2 % Basophils (%) (Auto) 0.4 % Neutrophils # (Auto) 6.2 TH/MM3 Lymphocytes # (Auto) 9.6 TH/MM3 Monocytes # (Auto) 0.6 TH/MM3 Eosinophils # (Auto) 0.2 TH/MM3 Basophils # (Auto) 0.1 TH/MM3 CBC Comment AUTO DIFF Differential Total Cells 100 Counted Neutrophils % (Manual) 28 % Band Neutrophils % 2 % Lymphocytes % 63 % Monocytes % 5 % Eosinophils % 1 % Neutrophils # (Manual) 5.2 TH/MM3 Metamyelocytes 1 % Differential Comment FINAL DIFF MANUAL Platelet Estimate NORMAL Platelet Morphology Comment NORMAL Ovalocytes 1+ Stomatocytes 1+ Laboratory Tests Test 12/23/16 06:40 Sodium Level 138 MEQ/L Potassium Level 3.7 MEQ/L Chloride Level 103 MEQ/L Carbon Dioxide Level 26.4 MEQ/L Anion Gap 9 MEQ/L Blood Urea Nitrogen 12 MG/DL Creatinine 0.91 MG/DL Estimat Glomerular Filtration 80 ML/MIN Rate Random Glucose 140 MG/DL Calcium Level 8.2 MG/DL Total Bilirubin 0.5 MG/DL Direct Bilirubin 0.2 MG/DL Indirect Bilirubin 0.3 MG/DL Aspartate Amino Transf 21 U/L (AST/SGOT) Alanine Aminotransferase 68 U/L (ALT/SGPT) Alkaline Phosphatase 91 U/L Total Protein 6.8 GM/DL Albumin 2.7 GM/DL PHYSICAL EXAMINATION IN GENERAL: No acute distress. HEAD, EYES, EARS, NOSE, AND THROAT: No icterus. Oropharynx moist mucosa without lesions. NECK: Supple. No adenopathy. LUNGS: Clear breath sounds bilateral. HEART: Regular S1-S2 without Audible murmurs, rubs or gallops. ABDOMEN: Bowel sounds present, soft, no tenderness appreciated. No masses palpable. EXTREMITIES: No clubbing or cyanosis or edema. SKIN: No rash. NEUROLOGIC: No gross focal findings. PSYCHIATRIC: Calm and cooperative. IMPRESSION 1. Sepsis due to strep species. Repeat blood cultures are negative. 2. Acute cholecystitis. Patient with elevated bilirubin in addition to elevated liver function tests and abnormal CT scan findings of the abdomen revealing probable liver mass versus gallbladder disease. 3. Leukocytosis secondary to infection. WBC fluctuating. Now higher. 4. Altered mental status secondary to infection. Improved. RECOMMENDATIONS Continue ceftriaxone IV to complete 10 days until 05/31/17. Orders written on infusion form. WBC can be follow by his primary physician as outpatient. I will sign off now. Dr Ovalles notified. Case management notified. Sterling Juarez MD December 23, 2016 15:38
--- NOTE | 2016-12-23 15:40 | HHI.FF ---
Infusion Therapy Location of Infusion Therapy: Home [facility] Care IV Infusion Order Patient Information Patient Weight 74.7 kg Diagnosis: (1) Bacteremia (2) Severe sepsis Coded Allergies: UNOBTAINABLE (Unverified , 12/17/16) Administer Medication Ceftriaxone 2 grams IV q 24 hours Stop Treatment: December 29, 2016 Additional Information Venous access: PICC Line Additional Instructions [x] Peripheral flush and dressing changes per protocol [x] Implanted port and central electrical lineman: * Implanted port: 10 ml Normal Saline followed by 5 ml Heparin 100 units/ml Heparin flush after each use and monthly to maintain. [] May leave port accessed during therapy. [] May leave peripheral site accessed for duration of therapy. [x] If patient has SOB or respiratory distress, check oxygen saturation. If less than 90% or clinical signs of respiratory distress, administer oxygen at 2 L/min. via nasal cannula and notify physician. [x] Anaphylaxis/Reaction orders: * Stop infusion. * Keep IV line open with saline flush. * Notify physician. * Monitor vital signs every 15 minutes until symptoms resolve. * Check Oxygen saturation; Oxygen at 2 L/min. via nasal cannula if less than 90% or clinical signs of respiratory distress. * Administer diphenhydramine (Benadryl) 25 mg IV STAT, (unless patient has received as pre-med). May repeat once, if necessary. * Solu-Cortef 250 mg IVP over 30-60 seconds, use 100 mg vials for each dissolution. * Epinephrine (1mg/1 ml) 0.3 mg subcutaneously or IVP now with any signs of respiratory distress. * Check with physician for new additional pre-med orders if patient is re- challenged or re-treated. [x] May remove PICC line when treatment complete, after confirming with Physician. [x] If the patient is admitted to the hospital, the ED, or transferred via [facility] , complete transfer form including medication reconciliation order sheet. Laboratory Tests Weekly Labs: CBC w/diff Sterling Juarez MD December 23, 2016 15:40
[2016-12-23 16:00] VITALS: BP 136/70; PULSE 78; RESP 20; TEMP 98.2; O2SAT 98
[2016-12-23] MEDS: cefTRIAXone INJ 2,000 MG in SODIUM CHLORIDE 0.9% INJ 100 ML IV SCH (17:32)
[2016-12-25 03:51] LABS: MITOCHONDRIAL ABS LESS THAN 20.0 U (())
== END 2016-12-23 18:33 | disposition home health service (06) | DRG 871 ==
LOC: NEPC 10:07 → NEDA 12:44 → HIME 16:20 → N04A 21:58
PROVIDERS: ADMIT Hospitalist; ATTEND Hospitalist
DX: A40.8 Other streptococcal sepsis (principal); G93.41 Metabolic encephalopathy; R65.20 Severe sepsis without septic shock; K81.0 Acute cholecystitis; E87.2 Acidosis; K81.1 Chronic cholecystitis; D50.9 Iron deficiency anemia, unspecified; I10 Essential (primary) hypertension
CPT/HCPCS: 36569; 51702; 70450; 71010; 72125; 74176; 74183; 76705; 76937; 78226; 80048; 80053; 80074; 80076; 80307; 81001; 82103; 82105; 82140; 82378; 82390; 82550; 82728; 83516; 83520; 83540; 83550; 83605; 83690; 83735; 83880; 84100; 84484; 85007; 85025; 85027; 85610; 85730; 86038; 86256; 86301; 86403; 87040; 87186; 87205; 87449; 87641; 93005; 93306; 96361; 96365; 96368; 96375; A9537; A9579; C9113; J0692; J0696; J1644; J1756; J2405; J2543; J3370; J7030; J7050